=== PATIENT | female | born 1935 | race Caucasian/White ===

== ENCOUNTER 2017-06-10 11:56 | Inpatient (IN) | payer MEDICARE, BC, OTHER ==
[~2017-06-10] VITALS: Ht 160 cm; Wt 99.8 kg
[2017-06-10] MEDS ORDERED: vancomycin/NS 1 GM ADD-VANTAGE 250 ML IV ONE (14:20)
[2017-06-10] MEDS ORDERED: clindamycin-Cleocin 900mg/D5W 50 ML IV ONE (14:20)
[2017-06-10 14:54] LABS: BASOPHILS # (AUTO) 0.1 X10'3 (0-0.2); BASOPHILS % (AUTO) 0.4 % (0-1); EOSINOPHILS # (AUTO) 0.3 X10'3 (0-0.9); EOSINOPHILS % (AUTO) 2.4 % (0-6); HEMATOCRIT 39.8 % (35.0-45.0); HEMOGLOBIN 13.6 g/dl (12.0-16.0); LYMPHOCYTES # (AUTO) 2.1 X10'3 (1.1-4.8); LYMPHOCYTES % (AUTO) 17.5 % (21-51); MEAN CORPUSCULAR HGB CONC 34.2 % (33.0-36.5); MEAN CORPUSCULAR VOLUME 93.6 FL (78-98); MEAN PLATELET VOLUME 8.1 FL (7.4-10.4); MONOCYTES # (AUTO) 0.8 X10'3 (0-0.9); MONOCYTES % (AUTO) 6.6 % (2-12); NEUTROPHILS # (AUTO) 8.7 X10'3 (1.8-7.7); NEUTROPHILS % (AUTO) 73.1 % (42-75); PLATELET COUNT 338 X10'3 (140-440); RED BLOOD COUNT 4.26 X10'6 (4.20-5.60); RED CELL DISTRIBUTION WIDTH 13.3 % (11.5-14.5); WHITE BLOOD COUNT 11.9 X10'3 (4.5-11.0)
[2017-06-10] MEDS ORDERED: ASPI81TA52 PO (15:46)
[2017-06-10] MEDS ORDERED: ALBU8HFA PO (15:47)
[2017-06-10] MEDS ORDERED: SPIR50TA3 PO (15:48)
[2017-06-10] MEDS ORDERED: LEVE500T77 PO (15:49)
[2017-06-10] MEDS ORDERED: CHLO12TA2 PO (15:50)
[2017-06-10] MEDS ORDERED: PENC5CRE TOP (15:52)
[2017-06-10] MEDS ORDERED: DEXL60CA3 PO (15:52)
[2017-06-10] MEDS ORDERED: DILT240C33 PO (15:53)
[2017-06-10] MEDS ORDERED: FURO40TA4 PO (15:54)
[2017-06-10] MEDS ORDERED: CODE1CAP54 PO (15:54)
[2017-06-10] MEDS ORDERED: IRON18TA PO (15:56)
[2017-06-10] MEDS ORDERED: LOPE-155 PO (15:56)
[2017-06-10] MEDS ORDERED: MAGN400C PO (15:57)
[2017-06-10] MEDS ORDERED: MINO2.5T19 PO (15:57)
[2017-06-10] MEDS ORDERED: TAPE50TA2 PO (15:58)
[2017-06-10 16:07] LABS: ALANINE AMINOTRANSFERASE 25 U/L (12-78); ALBUMIN 3.6 G/DL (3.4-5.0); ALBUMIN/GLOBULIN RATIO 0.9 (1.1-1.5); ALKALINE PHOSPHATASE 74 IU/L (46-116); ANION GAP 5 (8-16); ASPARTATE AMINO TRANSFERASE 21 U/L (10-37); BILIRUBIN,TOTAL 0.3 MG/DL (0.1-1.0); BLOOD UREA NITROGEN 17 MG/DL (7-18); BUN/CREATININE RATIO 12.1 (6.6-38.0); CALCIUM 9.4 MG/DL (8.5-10.1); CHLORIDE 103 MMOL/L (99-107); GLUCOSE 151 MG/DL (70-104); MAGNESIUM 2.1 MG/DL (1.5-2.4); POTASSIUM 4.4 MMOL/L (3.5-5.1); SODIUM 144 MMOL/L (135-145); TOTAL CARBON DIOXIDE 36.5 MMOL/L (24-32); TOTAL PROTEIN 7.5 G/DL (6.4-8.2); eGFR 36 ML/MIN
[2017-06-10] MEDS: normal saline 1000ml 1,000 ML IV SCH (16:20)
[2017-06-10] MEDS ORDERED: mag hydrox/Alum hydrox/simeth 30ml oral suspension PO PRN (16:20)
[2017-06-10] MEDS ORDERED: acetaminophen 325mg tablet PO PRN (16:20)
[2017-06-10] MEDS ORDERED: HYDROcodone/acetaminophen 5mg/325mg tablet PO PRN (16:20)
[2017-06-10] MEDS ORDERED: naloxone 0.4 mg/ml inj IV PRN (16:20)
[2017-06-10] MEDS ORDERED: CADD PCA waste documentation MC PRN (16:20)
[2017-06-10] MEDS ORDERED: loperamide 2mg capsule PO PRN (19:15)
[2017-06-10] MEDS ORDERED: morphine/NS 5 mg/ml CADD 50 ML IV SCH (19:25)
[2017-06-10] MEDS: metroNIDAZOLE-Flagyl 500mg/NS 100 ML IV SCH (20:28)
[2017-06-10] MEDS: levetiracetam 250mg tablet PO SCH (20:28)
[2017-06-10] MEDS: furosemide 40mg tablet PO SCH (20:28)
[2017-06-10] MEDS: pantoprazole 40mg Tablet.DR PO SCH (20:29)
[2017-06-10] MEDS: minoxidil 2.5mg tablet PO SCH (20:29)
[2017-06-10] MEDS ORDERED: temazepam 15mg capsule PO PRN (21:00)
[2017-06-10] MEDS ORDERED: pantoprazole 40 MG vial IV ONE (23:25)
[2017-06-11] MEDS: normal saline 1000ml 1,000 ML IV SCH ×3 (02:35→22:20)
[2017-06-11 06:25] LABS: INR 2.2 INR; PROTHROMBIN TIME 22.2 SECONDS (9.0-12.0)
[2017-06-11 06:31] LABS: BASOPHILS % (AUTO) 0.2 % (0-1); EOSINOPHILS # (AUTO) 0.4 X10'3 (0-0.9); EOSINOPHILS % (AUTO) 4.3 % (0-6); HEMATOCRIT 33.8 % (35.0-45.0); HEMOGLOBIN 11.6 g/dl (12.0-16.0); LYMPHOCYTES # (AUTO) 1.7 X10'3 (1.1-4.8); LYMPHOCYTES % (AUTO) 20.1 % (21-51); MEAN CORPUSCULAR HEMOGLOBIN 31.3 PG (27.0-31.0); MEAN CORPUSCULAR HGB CONC 34.4 % (33.0-36.5); MEAN PLATELET VOLUME 7.7 FL (7.4-10.4); MONOCYTES # (AUTO) 0.8 X10'3 (0-0.9); MONOCYTES % (AUTO) 9.5 % (2-12); NEUTROPHILS # (AUTO) 5.6 X10'3 (1.8-7.7); NEUTROPHILS % (AUTO) 65.9 % (42-75); PLATELET COUNT 259 X10'3 (140-440); RED BLOOD COUNT 3.71 X10'6 (4.20-5.60); RED CELL DISTRIBUTION WIDTH 13.4 % (11.5-14.5); WHITE BLOOD COUNT 8.4 X10'3 (4.5-11.0)
[2017-06-11 06:34] LABS: ALBUMIN 3.1 G/DL (3.4-5.0); ANION GAP 7 (8-16); BLOOD UREA NITROGEN 13 MG/DL (7-18); BUN/CREATININE RATIO 9.7 (6.6-38.0); CALCIUM 8.4 MG/DL (8.5-10.1); CHLORIDE 106 MMOL/L (99-107); CREATININE 1.34 MG/DL (0.40-0.90); GLUCOSE 108 MG/DL (70-104); POTASSIUM 4.4 MMOL/L (3.5-5.1); SODIUM 145 MMOL/L (135-145); TOTAL CARBON DIOXIDE 31.8 MMOL/L (24-32); eGFR 38 ML/MIN
[2017-06-11] MEDS ORDERED: PENCICLOVIR TOP PRN (08:00)
[2017-06-11] MEDS: levoFLOXACIN-Levaquin 750MG/D5 150 ML IV SCH (08:15)
[2017-06-11] MEDS: spironolactone 50 MG tablet PO SCH (08:25)
[2017-06-11] MEDS: codeine/butalbital/acetaminophen/caffeine capsule PO SCH (08:25)
[2017-06-11] MEDS: levetiracetam 250mg tablet PO SCH ×2 (08:25→19:58)
[2017-06-11] MEDS: diltiazem CD 120mg capsule (once-daily) PO SCH (08:25)
[2017-06-11] MEDS: furosemide 40mg tablet PO SCH ×2 (08:26→19:57)
[2017-06-11] MEDS: ferrous sulfate 325mg tablet PO SCH (08:26)
[2017-06-11] MEDS: pantoprazole 40mg Tablet.DR PO SCH ×2 (08:26→19:57)
[2017-06-11] MEDS: minoxidil 2.5mg tablet PO SCH ×2 (08:26→19:58)
[2017-06-11] MEDS: magnesium oxide 400mg tablet PO SCH (08:26)
[2017-06-11] MEDS: acetaminophen 325mg tablet PO PRN ×2 (08:33→15:28)
[2017-06-11] MEDS: metroNIDAZOLE-Flagyl 500mg/NS 100 ML IV SCH ×2 (09:58→19:58)
[2017-06-11 16:30] VITALS: BP 147/66
[2017-06-11] MEDS: chlorpheniramine 4mg tablet PO PRN (21:42)
[2017-06-11 22:00] VITALS: BP 159/57
[2017-06-12] VITALS (16 sets, daily range): BP systolic 113–144; BP diastolic 50–86
[2017-06-12] MEDS: normal saline 1000ml 1,000 ML IV SCH ×2 (04:32→17:02)
[2017-06-12] MEDS ORDERED: mineral oil 133ml enema RC PRN (05:00)
[2017-06-12 05:54] LABS: BASOPHILS % (AUTO) 0.4 % (0-1); EOSINOPHILS # (AUTO) 0.3 X10'3 (0-0.9); EOSINOPHILS % (AUTO) 3.8 % (0-6); HEMATOCRIT 34.2 % (35.0-45.0); HEMOGLOBIN 11.7 g/dl (12.0-16.0); LYMPHOCYTES # (AUTO) 1.4 X10'3 (1.1-4.8); LYMPHOCYTES % (AUTO) 15.4 % (21-51); MEAN CORPUSCULAR HEMOGLOBIN 31.6 PG (27.0-31.0); MEAN CORPUSCULAR HGB CONC 34.1 % (33.0-36.5); MEAN CORPUSCULAR VOLUME 92.7 FL (78-98); MEAN PLATELET VOLUME 7.9 FL (7.4-10.4); MONOCYTES # (AUTO) 0.8 X10'3 (0-0.9); MONOCYTES % (AUTO) 9.6 % (2-12); NEUTROPHILS # (AUTO) 6.3 X10'3 (1.8-7.7); NEUTROPHILS % (AUTO) 70.8 % (42-75); PLATELET COUNT 262 X10'3 (140-440); RED BLOOD COUNT 3.68 X10'6 (4.20-5.60); RED CELL DISTRIBUTION WIDTH 13.6 % (11.5-14.5); WHITE BLOOD COUNT 8.8 X10'3 (4.5-11.0)
[2017-06-12 06:21] LABS: INR 1.5 INR; PROTHROMBIN TIME 15.1 SECONDS (9.0-12.0)
[2017-06-12 06:24] LABS: ALBUMIN 3.1 G/DL (3.4-5.0); ANION GAP 9 (8-16); BLOOD UREA NITROGEN 16 MG/DL (7-18); BUN/CREATININE RATIO 11.7 (6.6-38.0); CALCIUM 8.2 MG/DL (8.5-10.1); CHLORIDE 107 MMOL/L (99-107); CREATININE 1.37 MG/DL (0.40-0.90); GLUCOSE 131 MG/DL (70-104); POTASSIUM 3.9 MMOL/L (3.5-5.1); SODIUM 145 MMOL/L (135-145); TOTAL CARBON DIOXIDE 28.8 MMOL/L (24-32); eGFR 37 ML/MIN
[2017-06-12] MEDS ORDERED: LEVA15HF4 INH (07:01)
[2017-06-12] MEDS: furosemide 40mg tablet PO SCH ×2 (07:36→20:13)
[2017-06-12] MEDS: magnesium oxide 400mg tablet PO SCH (07:36)
[2017-06-12] MEDS: pantoprazole 40mg Tablet.DR PO SCH ×2 (07:36→20:13)
[2017-06-12] MEDS: spironolactone 50 MG tablet PO SCH (07:36)
[2017-06-12] MEDS: levetiracetam 250mg tablet PO SCH ×2 (07:36→20:13)
[2017-06-12] MEDS: diltiazem CD 120mg capsule (once-daily) PO SCH (07:36)
[2017-06-12] MEDS: chlorpheniramine 4mg tablet PO PRN (07:37)
[2017-06-12] MEDS: metroNIDAZOLE-Flagyl 500mg/NS 100 ML IV SCH (07:37)
[2017-06-12] MEDS: minoxidil 2.5mg tablet PO SCH ×2 (07:37→20:14)
[2017-06-12] MEDS: ferrous sulfate 325mg tablet PO SCH (07:39)
[2017-06-12] MEDS: codeine/butalbital/acetaminophen/caffeine capsule PO SCH (08:00)
[2017-06-12] MEDS: levoFLOXACIN-Levaquin 750MG/D5 150 ML IV SCH (08:54)
[2017-06-12] MEDS ORDERED: albuterol 2.5 MG/3 ML nebule NEB ONE (09:55)
[2017-06-12] MEDS ORDERED: BUPIVAcaine 0.5% inj/PF 30 ml vial ONE (09:58)
[2017-06-12] MEDS ORDERED: sevoflurane 250ml liquid IH ONE (10:19)
[2017-06-12] MEDS ORDERED: phenylephrine 10mg/ml inj IV ONE (10:19)
[2017-06-12] MEDS ORDERED: propofol inj 20 ML IV ONE (10:20)
[2017-06-12] MEDS ORDERED: fentaNYL/PF 50MCG/1 ML 2ML syringe ONE (10:20)
[2017-06-12] MEDS ORDERED: dexamethasone sod phosphate 4mg/ml inj. ONE (10:48)
[2017-06-12] MEDS ORDERED: ondansetron/PF 4mg/2ml inj ONE (10:48)
[2017-06-12] MEDS ORDERED: ringers solution, lacted 1,000 ML IV SCH (11:22)
[2017-06-12] MEDS ORDERED: meperidine/PF 50mg/ml syringe IV PRN (11:25)
[2017-06-12] MEDS ORDERED: ondansetron/PF 4mg/2ml inj IV PRN (11:25)
[2017-06-12] MEDS ORDERED: fentaNYL/PF 50MCG/1 ML 2ML syringe IV PRN (11:25)
[2017-06-12] MEDS ORDERED: proCHLORperazine 10 MG/2 ml inj IV PRN (11:25)
[2017-06-12] MEDS ORDERED: CADD PCA waste documentation MC SCH (12:45)
[2017-06-12] MEDS: morphine/NS 5 mg/ml CADD 50 ML IV SCH ×6 (13:00→23:00)
[2017-06-12] MEDS: metroNIDAZOLE 500mg tablet PO SCH (20:13)
[2017-06-12] MEDS: magnesium hydroxide 30ml (MOM) UD suspension PO PRN (20:21)
[2017-06-13] MEDS: morphine/NS 5 mg/ml CADD 50 ML IV SCH ×6 (01:00→11:00)
[2017-06-13] MEDS: normal saline 1000ml 1,000 ML IV SCH (04:25)
[2017-06-13 06:00] VITALS: BP 131/58
[2017-06-13 07:14] LABS: BASOPHILS % (AUTO) 0.1 % (0-1); EOSINOPHILS # (AUTO) 0.1 X10'3 (0-0.9); EOSINOPHILS % (AUTO) 1.3 % (0-6); HEMATOCRIT 30.9 % (35.0-45.0); HEMOGLOBIN 10.5 g/dl (12.0-16.0); LYMPHOCYTES # (AUTO) 0.8 X10'3 (1.1-4.8); LYMPHOCYTES % (AUTO) 8.1 % (21-51); MEAN CORPUSCULAR HEMOGLOBIN 31.8 PG (27.0-31.0); MEAN CORPUSCULAR HGB CONC 33.9 % (33.0-36.5); MEAN CORPUSCULAR VOLUME 93.7 FL (78-98); MEAN PLATELET VOLUME 8.4 FL (7.4-10.4); MONOCYTES # (AUTO) 0.6 X10'3 (0-0.9); MONOCYTES % (AUTO) 6.8 % (2-12); NEUTROPHILS # (AUTO) 7.8 X10'3 (1.8-7.7); NEUTROPHILS % (AUTO) 83.7 % (42-75); PLATELET COUNT 249 X10'3 (140-440); RED CELL DISTRIBUTION WIDTH 13.5 % (11.5-14.5); WHITE BLOOD COUNT 9.3 X10'3 (4.5-11.0)
[2017-06-13 07:30] LABS: INR 1.1 INR; PROTHROMBIN TIME 11.8 SECONDS (9.0-12.0)
[2017-06-13 07:31] LABS: ALBUMIN 2.9 G/DL (3.4-5.0); ANION GAP 7 (8-16); BLOOD UREA NITROGEN 20 MG/DL (7-18); BUN/CREATININE RATIO 14.9 (6.6-38.0); CALCIUM 7.6 MG/DL (8.5-10.1); CHLORIDE 108 MMOL/L (99-107); CREATININE 1.34 MG/DL (0.40-0.90); GLUCOSE 158 MG/DL (70-104); MAGNESIUM 2.3 MG/DL (1.5-2.4); POTASSIUM 4.6 MMOL/L (3.5-5.1); SODIUM 143 MMOL/L (135-145); TOTAL CARBON DIOXIDE 28.3 MMOL/L (24-32); eGFR 38 ML/MIN
[2017-06-13] MEDS: codeine/butalbital/acetaminophen/caffeine capsule PO SCH (08:00)
[2017-06-13] MEDS: diltiazem CD 120mg capsule (once-daily) PO SCH (08:02)
[2017-06-13] MEDS: furosemide 40mg tablet PO SCH ×2 (08:02→20:34)
[2017-06-13] MEDS: magnesium oxide 400mg tablet PO SCH (08:02)
[2017-06-13] MEDS: metroNIDAZOLE 500mg tablet PO SCH ×2 (08:02→20:34)
[2017-06-13] MEDS: spironolactone 50 MG tablet PO SCH (08:02)
[2017-06-13] MEDS: ferrous sulfate 325mg tablet PO SCH (08:02)
[2017-06-13] MEDS: pantoprazole 40mg Tablet.DR PO SCH ×2 (08:03→20:34)
[2017-06-13] MEDS: levetiracetam 250mg tablet PO SCH ×2 (08:03→20:34)
[2017-06-13] MEDS: minoxidil 2.5mg tablet PO SCH ×2 (08:03→20:34)
[2017-06-13 10:00] VITALS: BP 141/58
[2017-06-13] MEDS: magnesium hydroxide 30ml (MOM) UD suspension PO PRN (12:38)
[2017-06-13] MEDS: duloxetine 20mg capsule.DR PO SCH ×2 (13:40→15:20)
[2017-06-13] MEDS ORDERED: morphine 4 MG/ML inj SYRINge IV PRN (13:40)
[2017-06-13] MEDS: morphine 4 MG/ML inj SYRINge IV PRN (15:38)
[2017-06-13 18:00] VITALS: BP 149/59
[2017-06-13] MEDS: lactobacillus rhamnosus 10,000 MMU CELLS/CAPSULE PO SCH (20:34)
[2017-06-13] MEDS: acetaminophen 325mg tablet PO PRN (20:35)
[2017-06-13] MEDS: albuterol 2.5 MG/3 ML nebule NEB PRN (20:49)
[2017-06-13 22:00] VITALS: BP 152/69
[2017-06-14] MEDS: acetaminophen 325mg tablet PO PRN ×3 (03:10→22:55)
[2017-06-14] MEDS ORDERED: diphenhydrAMINE 25mg capsule PO PRN (03:30)
[2017-06-14] MEDS: morphine 4 MG/ML inj SYRINge IV PRN ×2 (04:56→09:40)
[2017-06-14 05:48] LABS: BASOPHILS % (AUTO) 0.3 % (0-1); EOSINOPHILS # (AUTO) 0.2 X10'3 (0-0.9); EOSINOPHILS % (AUTO) 1.8 % (0-6); HEMATOCRIT 32.8 % (35.0-45.0); HEMOGLOBIN 11.1 g/dl (12.0-16.0); LYMPHOCYTES # (AUTO) 1.9 X10'3 (1.1-4.8); MEAN CORPUSCULAR HEMOGLOBIN 31.6 PG (27.0-31.0); MEAN CORPUSCULAR VOLUME 92.9 FL (78-98); MEAN PLATELET VOLUME 8.2 FL (7.4-10.4); MONOCYTES # (AUTO) 0.7 X10'3 (0-0.9); MONOCYTES % (AUTO) 6.9 % (2-12); NEUTROPHILS # (AUTO) 7.5 X10'3 (1.8-7.7); PLATELET COUNT 292 X10'3 (140-440); RED BLOOD COUNT 3.53 X10'6 (4.20-5.60); RED CELL DISTRIBUTION WIDTH 13.8 % (11.5-14.5); WHITE BLOOD COUNT 10.3 X10'3 (4.5-11.0)
[2017-06-14 06:00] VITALS: BP 134/56
[2017-06-14 06:02] LABS: PROTHROMBIN TIME 10.7 SECONDS (9.0-12.0)
[2017-06-14 06:04] LABS: ALBUMIN 3.3 G/DL (3.4-5.0); ANION GAP 9 (8-16); BLOOD UREA NITROGEN 26 MG/DL (7-18); BUN/CREATININE RATIO 19.8 (6.6-38.0); CALCIUM 8.3 MG/DL (8.5-10.1); CHLORIDE 108 MMOL/L (99-107); CREATININE 1.31 MG/DL (0.40-0.90); GLUCOSE 126 MG/DL (70-104); MAGNESIUM 2.8 MG/DL (1.5-2.4); POTASSIUM 4.5 MMOL/L (3.5-5.1); SODIUM 144 MMOL/L (135-145); TOTAL CARBON DIOXIDE 27.1 MMOL/L (24-32); eGFR 39 ML/MIN
[2017-06-14] MEDS: duloxetine 20mg capsule.DR PO SCH ×2 (08:00→08:18)
[2017-06-14] MEDS: codeine/butalbital/acetaminophen/caffeine capsule PO SCH (08:17)
[2017-06-14] MEDS: metroNIDAZOLE 500mg tablet PO SCH ×2 (08:17→21:10)
[2017-06-14] MEDS: levetiracetam 250mg tablet PO SCH ×2 (08:17→21:10)
[2017-06-14] MEDS: minoxidil 2.5mg tablet PO SCH ×2 (08:18→21:11)
[2017-06-14] MEDS: furosemide 40mg tablet PO SCH ×2 (08:18→21:10)
[2017-06-14] MEDS: diltiazem CD 120mg capsule (once-daily) PO SCH (08:18)
[2017-06-14] MEDS: ferrous sulfate 325mg tablet PO SCH (08:18)
[2017-06-14] MEDS: spironolactone 50 MG tablet PO SCH (08:18)
[2017-06-14] MEDS: magnesium oxide 400mg tablet PO SCH (08:18)
[2017-06-14] MEDS: lactobacillus rhamnosus 10,000 MMU CELLS/CAPSULE PO SCH ×2 (08:18→21:10)
[2017-06-14] MEDS: pantoprazole 40mg Tablet.DR PO SCH ×2 (08:18→21:11)
[2017-06-14] MEDS: levoFLOXACIN 750MG TABLET PO SCH (11:09)
[2017-06-14 12:50] VITALS: BP 119/49
[2017-06-14 18:00] VITALS: BP 149/56
[2017-06-14 22:00] VITALS: BP 132/46
[2017-06-15] VITALS (15 sets, daily range): BP systolic 132–177; BP diastolic 48–87
[2017-06-15] MEDS: albuterol 2.5 MG/3 ML nebule NEB PRN (05:17)
[2017-06-15 05:51] LABS: BASOPHILS % (AUTO) 0.5 % (0-1); EOSINOPHILS # (AUTO) 0.3 X10'3 (0-0.9); EOSINOPHILS % (AUTO) 3.1 % (0-6); HEMATOCRIT 36.2 % (35.0-45.0); HEMOGLOBIN 12.4 g/dl (12.0-16.0); LYMPHOCYTES # (AUTO) 1.7 X10'3 (1.1-4.8); LYMPHOCYTES % (AUTO) 16.4 % (21-51); MEAN CORPUSCULAR HEMOGLOBIN 31.8 PG (27.0-31.0); MEAN CORPUSCULAR HGB CONC 34.1 % (33.0-36.5); MEAN CORPUSCULAR VOLUME 93.4 FL (78-98); MEAN PLATELET VOLUME 8.3 FL (7.4-10.4); MONOCYTES # (AUTO) 0.8 X10'3 (0-0.9); MONOCYTES % (AUTO) 7.8 % (2-12); NEUTROPHILS # (AUTO) 7.5 X10'3 (1.8-7.7); NEUTROPHILS % (AUTO) 72.2 % (42-75); PLATELET COUNT 308 X10'3 (140-440); RED BLOOD COUNT 3.88 X10'6 (4.20-5.60); RED CELL DISTRIBUTION WIDTH 13.8 % (11.5-14.5); WHITE BLOOD COUNT 10.4 X10'3 (4.5-11.0)
[2017-06-15 06:00] LABS: PROTHROMBIN TIME 10.5 SECONDS (9.0-12.0)
[2017-06-15 06:39] LABS: ALBUMIN 3.5 G/DL (3.4-5.0); ANION GAP 11 (8-16); BLOOD UREA NITROGEN 15 MG/DL (7-18); BUN/CREATININE RATIO 12.9 (6.6-38.0); CALCIUM 8.1 MG/DL (8.5-10.1); CHLORIDE 105 MMOL/L (99-107); CREATININE 1.16 MG/DL (0.40-0.90); GLUCOSE 110 MG/DL (70-104); MAGNESIUM 2.6 MG/DL (1.5-2.4); POTASSIUM 4.5 MMOL/L (3.5-5.1); SODIUM 141 MMOL/L (135-145); eGFR 45 ML/MIN
[2017-06-15] MEDS: lactobacillus rhamnosus 10,000 MMU CELLS/CAPSULE PO SCH ×2 (08:00→19:59)
[2017-06-15] MEDS: duloxetine 20mg capsule.DR PO SCH ×2 (08:00→08:22)
[2017-06-15] MEDS: magnesium oxide 400mg tablet PO SCH (08:00)
[2017-06-15] MEDS: codeine/butalbital/acetaminophen/caffeine capsule PO SCH (08:00)
[2017-06-15] MEDS: furosemide 40mg tablet PO SCH ×2 (08:00→20:01)
[2017-06-15] MEDS: spironolactone 50 MG tablet PO SCH (08:20)
[2017-06-15] MEDS: diltiazem CD 120mg capsule (once-daily) PO SCH (08:21)
[2017-06-15] MEDS: ferrous sulfate 325mg tablet PO SCH (08:23)
[2017-06-15] MEDS: acetaminophen 325mg tablet PO PRN (08:24)
[2017-06-15] MEDS: metroNIDAZOLE 500mg tablet PO SCH ×2 (08:25→20:02)
[2017-06-15] MEDS: levetiracetam 250mg tablet PO SCH ×2 (08:26→20:00)
[2017-06-15] MEDS: pantoprazole 40mg Tablet.DR PO SCH ×2 (08:27→20:02)
[2017-06-15] MEDS: minoxidil 2.5mg tablet PO SCH ×2 (08:27→20:02)
[2017-06-15] MEDS ORDERED: glycopyrrolate 0.2mg/ml inj ONE (12:11)
[2017-06-15] MEDS ORDERED: succinylcholine 20mg/ml inj IV ONE (12:11)
[2017-06-15] MEDS ORDERED: sevoflurane 250ml liquid IH ONE (12:11)
[2017-06-15] MEDS ORDERED: neostigmine methylsulfate 1 MG/ML 10ml vial ONE (12:11)
[2017-06-15] MEDS ORDERED: ondansetron/PF 4mg/2ml inj IV PRN (13:25)
[2017-06-15] MEDS ORDERED: ringers solution, lacted 1,000 ML IV SCH (13:25)
[2017-06-15] MEDS ORDERED: ipratropium/albuterol 3ml nebule NEB PRN (13:25)
[2017-06-15] MEDS: morphine 4 MG/ML inj SYRINge IV PRN ×3 (13:39→19:58)
[2017-06-16] MEDS: morphine 4 MG/ML inj SYRINge IV PRN ×4 (00:24→20:36)
[2017-06-16 00:38] VITALS: BP 128/58
[2017-06-16] MEDS: codeine/butalbital/acetaminophen/caffeine capsule PO SCH (08:00)
[2017-06-16] MEDS: duloxetine 20mg capsule.DR PO SCH ×2 (08:00→08:15)
[2017-06-16] MEDS: spironolactone 50 MG tablet PO SCH (08:00)
[2017-06-16] MEDS: magnesium oxide 400mg tablet PO SCH (08:00)
[2017-06-16] MEDS: diltiazem CD 120mg capsule (once-daily) PO SCH (08:14)
[2017-06-16] MEDS: lactobacillus rhamnosus 10,000 MMU CELLS/CAPSULE PO SCH ×2 (08:15→20:37)
[2017-06-16] MEDS: ferrous sulfate 325mg tablet PO SCH (08:16)
[2017-06-16] MEDS: metroNIDAZOLE 500mg tablet PO SCH ×2 (08:17→20:37)
[2017-06-16] MEDS: furosemide 40mg tablet PO SCH ×2 (08:18→20:37)
[2017-06-16] MEDS: levetiracetam 250mg tablet PO SCH ×2 (08:18→20:37)
[2017-06-16] MEDS: minoxidil 2.5mg tablet PO SCH ×2 (08:19→20:39)
[2017-06-16] MEDS: pantoprazole 40mg Tablet.DR PO SCH ×2 (08:20→20:37)
[2017-06-16] MEDS: acetaminophen 325mg tablet PO PRN (08:34)
[2017-06-16] MEDS: albuterol 2.5 MG/3 ML nebule NEB PRN (09:04)
[2017-06-16 11:44] VITALS: BP 163/57
[2017-06-16] MEDS: levoFLOXACIN 750MG TABLET PO SCH (11:50)
[2017-06-16 12:55] LABS: BASOPHILS % (AUTO) 0.4 % (0-1); EOSINOPHILS # (AUTO) 0.1 X10'3 (0-0.9); EOSINOPHILS % (AUTO) 0.9 % (0-6); HEMATOCRIT 34.1 % (35.0-45.0); HEMOGLOBIN 11.5 g/dl (12.0-16.0); LYMPHOCYTES # (AUTO) 1.4 X10'3 (1.1-4.8); LYMPHOCYTES % (AUTO) 11.3 % (21-51); MEAN CORPUSCULAR HEMOGLOBIN 31.7 PG (27.0-31.0); MEAN CORPUSCULAR HGB CONC 33.7 % (33.0-36.5); MEAN CORPUSCULAR VOLUME 94.1 FL (78-98); MEAN PLATELET VOLUME 8.1 FL (7.4-10.4); MONOCYTES # (AUTO) 1.2 X10'3 (0-0.9); MONOCYTES % (AUTO) 9.6 % (2-12); NEUTROPHILS # (AUTO) 9.6 X10'3 (1.8-7.7); NEUTROPHILS % (AUTO) 77.8 % (42-75); PLATELET COUNT 288 X10'3 (140-440); RED BLOOD COUNT 3.63 X10'6 (4.20-5.60); WHITE BLOOD COUNT 12.4 X10'3 (4.5-11.0)
[2017-06-16 13:10] LABS: ALBUMIN/GLOBULIN RATIO 0.9 (1.1-1.5); ALKALINE PHOSPHATASE 75 IU/L (46-116); ANION GAP 8 (8-16); ASPARTATE AMINO TRANSFERASE 45 U/L (10-37); BILIRUBIN,TOTAL 0.4 MG/DL (0.1-1.0); BLOOD UREA NITROGEN 12 MG/DL (7-18); BUN/CREATININE RATIO 10.3 (6.6-38.0); CALCIUM 8.1 MG/DL (8.5-10.1); CHLORIDE 105 MMOL/L (99-107); CREATININE 1.17 MG/DL (0.40-0.90); GLUCOSE 101 MG/DL (70-104); POTASSIUM 4.4 MMOL/L (3.5-5.1); SODIUM 141 MMOL/L (135-145); TOTAL PROTEIN 6.5 G/DL (6.4-8.2); eGFR 45 ML/MIN
[2017-06-16 13:41] LABS: ALANINE AMINOTRANSFERASE 54 U/L (12-78)
[2017-06-16] MEDS ORDERED: HYDROmorphone 1 mg/ml syringe IV PRN (19:50)
[2017-06-16 20:00] VITALS: BP 145/49
[2017-06-16] MEDS ORDERED: HYDROmorphone 2mg tablet PO PRN ×2 (20:05→20:15)
[2017-06-16] MEDS ORDERED: HYDROmorphone 2mg tablet PO ONE (20:05)
[2017-06-17] VITALS: BP 126/47
[2017-06-17] MEDS: albuterol 2.5 MG/3 ML nebule NEB PRN (01:18)
[2017-06-17] MEDS: HYDROmorphone 2mg tablet PO PRN ×3 (01:47→23:39)
[2017-06-17 07:19] VITALS: BP 120/52
[2017-06-17] MEDS: duloxetine 20mg capsule.DR PO SCH ×2 (07:37→07:52)
[2017-06-17] MEDS: magnesium oxide 400mg tablet PO SCH (07:39)
[2017-06-17] MEDS: codeine/butalbital/acetaminophen/caffeine capsule PO SCH (07:40)
[2017-06-17] MEDS: minoxidil 2.5mg tablet PO SCH ×2 (07:52→20:46)
[2017-06-17] MEDS: levetiracetam 250mg tablet PO SCH ×2 (07:52→20:47)
[2017-06-17] MEDS: pantoprazole 40mg Tablet.DR PO SCH ×2 (07:52→20:47)
[2017-06-17] MEDS: ferrous sulfate 325mg tablet PO SCH (07:52)
[2017-06-17] MEDS: spironolactone 50 MG tablet PO SCH (07:52)
[2017-06-17] MEDS: lactobacillus rhamnosus 10,000 MMU CELLS/CAPSULE PO SCH ×2 (07:52→20:47)
[2017-06-17] MEDS: metroNIDAZOLE 500mg tablet PO SCH (07:52)
[2017-06-17] MEDS: diltiazem CD 120mg capsule (once-daily) PO SCH (07:52)
[2017-06-17] MEDS: morphine 4 MG/ML inj SYRINge IV PRN ×3 (07:53→21:49)
[2017-06-17] MEDS: furosemide 40mg tablet PO SCH ×2 (07:54→20:47)
[2017-06-17] MEDS: ondansetron/PF 4mg/2ml inj IV PRN (08:06)
[2017-06-17 10:41] LABS: BASOPHILS # (AUTO) 0.1 X10'3 (0-0.2); BASOPHILS % (AUTO) 0.7 % (0-1); EOSINOPHILS # (AUTO) 0.1 X10'3 (0-0.9); EOSINOPHILS % (AUTO) 1.2 % (0-6); HEMATOCRIT 33.8 % (35.0-45.0); HEMOGLOBIN 11.6 g/dl (12.0-16.0); LYMPHOCYTES # (AUTO) 1.5 X10'3 (1.1-4.8); LYMPHOCYTES % (AUTO) 12.1 % (21-51); MEAN CORPUSCULAR HEMOGLOBIN 31.8 PG (27.0-31.0); MEAN CORPUSCULAR HGB CONC 34.3 % (33.0-36.5); MEAN CORPUSCULAR VOLUME 92.7 FL (78-98); MEAN PLATELET VOLUME 7.8 FL (7.4-10.4); MONOCYTES % (AUTO) 8.3 % (2-12); NEUTROPHILS # (AUTO) 9.5 X10'3 (1.8-7.7); NEUTROPHILS % (AUTO) 77.7 % (42-75); PLATELET COUNT 253 X10'3 (140-440); RED BLOOD COUNT 3.65 X10'6 (4.20-5.60); RED CELL DISTRIBUTION WIDTH 13.5 % (11.5-14.5); WHITE BLOOD COUNT 12.2 X10'3 (4.5-11.0)
[2017-06-17 10:51] LABS: ALBUMIN 2.6 G/DL (3.4-5.0); ANION GAP 7 (8-16); BLOOD UREA NITROGEN 13 MG/DL (7-18); BUN/CREATININE RATIO 11.1 (6.6-38.0); CALCIUM 7.8 MG/DL (8.5-10.1); CHLORIDE 102 MMOL/L (99-107); CREATININE 1.17 MG/DL (0.40-0.90); GLUCOSE 148 MG/DL (70-104); SODIUM 136 MMOL/L (135-145); TOTAL CARBON DIOXIDE 26.9 MMOL/L (24-32); eGFR 45 ML/MIN
[2017-06-17 10:53] LABS: POTASSIUM 4.6 MMOL/L (3.5-5.1)
[2017-06-17 11:41] VITALS: BP_SYST 100; BP_SYST 123; BP_DIAS 45; BP_DIAS 62
[2017-06-17 20:00] VITALS: BP 134/51
[2017-06-18] VITALS: BP 134/49
[2017-06-18] MEDS: HYDROmorphone 2mg tablet PO PRN (05:08)
[2017-06-18] MEDS: chlorpheniramine 4mg tablet PO PRN (05:09)
[2017-06-18 08:00] VITALS: BP 121/42
[2017-06-18] MEDS: magnesium oxide 400mg tablet PO SCH (08:00)
[2017-06-18] MEDS: duloxetine 20mg capsule.DR PO SCH ×2 (08:00→09:07)
[2017-06-18] MEDS: codeine/butalbital/acetaminophen/caffeine capsule PO SCH (08:00)
[2017-06-18] MEDS: ferrous sulfate 325mg tablet PO SCH (09:07)
[2017-06-18] MEDS: furosemide 40mg tablet PO SCH ×2 (09:07→21:27)
[2017-06-18] MEDS: diltiazem CD 120mg capsule (once-daily) PO SCH (09:07)
[2017-06-18] MEDS: lactobacillus rhamnosus 10,000 MMU CELLS/CAPSULE PO SCH ×2 (09:07→20:00)
[2017-06-18] MEDS: pantoprazole 40mg Tablet.DR PO SCH ×2 (09:08→21:28)
[2017-06-18] MEDS: levetiracetam 250mg tablet PO SCH ×2 (09:10→21:28)
[2017-06-18] MEDS: spironolactone 50 MG tablet PO SCH (09:11)
[2017-06-18] MEDS: minoxidil 2.5mg tablet PO SCH ×2 (09:12→21:27)
[2017-06-18 10:01] LABS: BASOPHILS # (AUTO) 0.1 X10'3 (0-0.2); BASOPHILS % (AUTO) 0.6 % (0-1); EOSINOPHILS # (AUTO) 0.4 X10'3 (0-0.9); EOSINOPHILS % (AUTO) 3.1 % (0-6); HEMATOCRIT 33.8 % (35.0-45.0); HEMOGLOBIN 11.5 g/dl (12.0-16.0); LYMPHOCYTES # (AUTO) 1.7 X10'3 (1.1-4.8); LYMPHOCYTES % (AUTO) 14.5 % (21-51); MEAN CORPUSCULAR HEMOGLOBIN 31.9 PG (27.0-31.0); MEAN CORPUSCULAR VOLUME 93.8 FL (78-98); MEAN PLATELET VOLUME 7.9 FL (7.4-10.4); MONOCYTES % (AUTO) 8.5 % (2-12); NEUTROPHILS # (AUTO) 8.6 X10'3 (1.8-7.7); NEUTROPHILS % (AUTO) 73.3 % (42-75); PLATELET COUNT 279 X10'3 (140-440); RED CELL DISTRIBUTION WIDTH 13.1 % (11.5-14.5); WHITE BLOOD COUNT 11.8 X10'3 (4.5-11.0)
[2017-06-18 10:18] LABS: ALANINE AMINOTRANSFERASE 28 U/L (12-78); ALBUMIN 2.5 G/DL (3.4-5.0); ALBUMIN/GLOBULIN RATIO 0.7 (1.1-1.5); ALKALINE PHOSPHATASE 60 IU/L (46-116); ANION GAP 8 (8-16); ASPARTATE AMINO TRANSFERASE 37 U/L (10-37); BILIRUBIN,TOTAL 0.5 MG/DL (0.1-1.0); BLOOD UREA NITROGEN 13 MG/DL (7-18); BUN/CREATININE RATIO 10.7 (6.6-38.0); CALCIUM 7.6 MG/DL (8.5-10.1); CHLORIDE 101 MMOL/L (99-107); CREATININE 1.22 MG/DL (0.40-0.90); GLUCOSE 168 MG/DL (70-104); POTASSIUM 4.1 MMOL/L (3.5-5.1); SODIUM 138 MMOL/L (135-145); TOTAL CARBON DIOXIDE 28.7 MMOL/L (24-32); TOTAL PROTEIN 6.3 G/DL (6.4-8.2); eGFR 43 ML/MIN
[2017-06-18] MEDS: morphine 4 MG/ML inj SYRINge IV PRN ×3 (11:55→22:40)
[2017-06-18 12:38] VITALS: BP 131/40
[2017-06-18 18:00] VITALS: BP 123/48
[2017-06-18] MEDS ORDERED: warfarin 5mg tablet PO ONE (21:00)
[2017-06-18] MEDS: metroNIDAZOLE 500mg tablet PO SCH (21:27)
[2017-06-19] VITALS: BP 122/51
[2017-06-19] MEDS: morphine 4 MG/ML inj SYRINge IV PRN (03:12)
[2017-06-19 05:41] LABS: INR 0.9 INR; PROTHROMBIN TIME 9.8 SECONDS (9.0-12.0)
[2017-06-19 08:00] VITALS: BP 116/60
[2017-06-19] MEDS: codeine/butalbital/acetaminophen/caffeine capsule PO SCH (08:00)
[2017-06-19] MEDS: magnesium oxide 400mg tablet PO SCH (08:00)
[2017-06-19] MEDS: spironolactone 50 MG tablet PO SCH (09:46)
[2017-06-19] MEDS: diltiazem CD 120mg capsule (once-daily) PO SCH (09:47)
[2017-06-19] MEDS: lactobacillus rhamnosus 10,000 MMU CELLS/CAPSULE PO SCH ×2 (09:47→21:45)
[2017-06-19] MEDS: duloxetine 20mg capsule.DR PO SCH (09:47)
[2017-06-19] MEDS: metroNIDAZOLE 500mg tablet PO SCH ×2 (09:48→21:46)
[2017-06-19] MEDS: ferrous sulfate 325mg tablet PO SCH (09:48)
[2017-06-19] MEDS: furosemide 40mg tablet PO SCH ×2 (09:49→21:46)
[2017-06-19] MEDS: levetiracetam 250mg tablet PO SCH ×2 (09:49→21:46)
[2017-06-19] MEDS: minoxidil 2.5mg tablet PO SCH ×2 (09:50→21:47)
[2017-06-19] MEDS: pantoprazole 40mg Tablet.DR PO SCH ×2 (09:52→21:50)
[2017-06-19 11:34] VITALS: BP 142/62
[2017-06-19] MEDS: acetaminophen 325mg tablet PO PRN ×2 (13:02→23:53)
[2017-06-19] MEDS ORDERED: warfarin 7.5mg tablet PO ONE (21:00)
[2017-06-19] MEDS ORDERED: warfarin 5mg tablet PO SCH (21:00)
[2017-06-20 00:05] VITALS: BP 105/54
[2017-06-20 05:43] LABS: PROTHROMBIN TIME 10.3 SECONDS (9.0-12.0)
[2017-06-20 07:00] VITALS: BP 153/60
[2017-06-20] MEDS: magnesium oxide 400mg tablet PO SCH (08:00)
[2017-06-20] MEDS: codeine/butalbital/acetaminophen/caffeine capsule PO SCH (08:00)
[2017-06-20] MEDS: diltiazem CD 120mg capsule (once-daily) PO SCH (08:15)
[2017-06-20] MEDS: levetiracetam 250mg tablet PO SCH ×2 (08:16→20:27)
[2017-06-20] MEDS: lactobacillus rhamnosus 10,000 MMU CELLS/CAPSULE PO SCH ×2 (08:16→20:29)
[2017-06-20] MEDS: morphine 4 MG/ML inj SYRINge IV PRN (08:21)
[2017-06-20] MEDS: duloxetine 20mg capsule.DR PO SCH (08:26)
[2017-06-20] MEDS: ferrous sulfate 325mg tablet PO SCH (08:26)
[2017-06-20] MEDS: furosemide 40mg tablet PO SCH ×2 (08:26→20:29)
[2017-06-20] MEDS: metroNIDAZOLE 500mg tablet PO SCH ×2 (08:27→20:29)
[2017-06-20] MEDS: ondansetron/PF 4mg/2ml inj IV PRN (08:28)
[2017-06-20] MEDS: spironolactone 50 MG tablet PO SCH (08:31)
[2017-06-20] MEDS: pantoprazole 40mg Tablet.DR PO SCH ×2 (08:31→20:29)
[2017-06-20] MEDS: minoxidil 2.5mg tablet PO SCH ×2 (08:32→20:26)
[2017-06-20] MEDS ORDERED: HYDROcodone/acetaminophen 5mg/325mg tablet PO PRN (11:45)
[2017-06-20 12:04] LABS: BASOPHILS % (AUTO) 0.4 % (0-1); EOSINOPHILS # (AUTO) 0.5 X10'3 (0-0.9); EOSINOPHILS % (AUTO) 5.3 % (0-6); HEMATOCRIT 34.6 % (35.0-45.0); HEMOGLOBIN 11.9 g/dl (12.0-16.0); LYMPHOCYTES # (AUTO) 1.5 X10'3 (1.1-4.8); LYMPHOCYTES % (AUTO) 17.8 % (21-51); MEAN CORPUSCULAR HEMOGLOBIN 31.6 PG (27.0-31.0); MEAN CORPUSCULAR HGB CONC 34.4 % (33.0-36.5); MEAN CORPUSCULAR VOLUME 91.8 FL (78-98); MEAN PLATELET VOLUME 7.7 FL (7.4-10.4); MONOCYTES # (AUTO) 0.7 X10'3 (0-0.9); MONOCYTES % (AUTO) 8.7 % (2-12); NEUTROPHILS # (AUTO) 5.8 X10'3 (1.8-7.7); NEUTROPHILS % (AUTO) 67.8 % (42-75); PLATELET COUNT 277 X10'3 (140-440); RED BLOOD COUNT 3.77 X10'6 (4.20-5.60); RED CELL DISTRIBUTION WIDTH 13.2 % (11.5-14.5); WHITE BLOOD COUNT 8.6 X10'3 (4.5-11.0)
[2017-06-20 12:13] LABS: ALBUMIN 2.6 G/DL (3.4-5.0); ANION GAP 7 (8-16); BLOOD UREA NITROGEN 13 MG/DL (7-18); BUN/CREATININE RATIO 10.4 (6.6-38.0); CALCIUM 8.4 MG/DL (8.5-10.1); CHLORIDE 100 MMOL/L (99-107); CREATININE 1.25 MG/DL (0.40-0.90); GLUCOSE 144 MG/DL (70-104); POTASSIUM 3.9 MMOL/L (3.5-5.1); SODIUM 139 MMOL/L (135-145); eGFR 41 ML/MIN
[2017-06-20] MEDS: acetaminophen 325mg tablet PO PRN (17:04)
[2017-06-20 18:00] VITALS: BP 171/54
[2017-06-20] MEDS ORDERED: warfarin 2.5mg tablet PO ONE (21:00)
[2017-06-20] MEDS: MORPHINE 2MG in 2ml NS syringe IV PRN (22:18)
[2017-06-21] VITALS: BP 122/50
[2017-06-21 07:12] VITALS: BP 141/58
[2017-06-21 07:24] LABS: INR 1.1 INR; PROTHROMBIN TIME 11.8 SECONDS (9.0-12.0)
[2017-06-21] MEDS: spironolactone 50 MG tablet PO SCH (07:47)
[2017-06-21] MEDS: lactobacillus rhamnosus 10,000 MMU CELLS/CAPSULE PO SCH ×2 (07:48→20:43)
[2017-06-21] MEDS: duloxetine 20mg capsule.DR PO SCH (07:48)
[2017-06-21] MEDS: ferrous sulfate 325mg tablet PO SCH (07:48)
[2017-06-21] MEDS: diltiazem CD 120mg capsule (once-daily) PO SCH (07:48)
[2017-06-21] MEDS: metroNIDAZOLE 500mg tablet PO SCH ×2 (07:49→20:43)
[2017-06-21] MEDS: furosemide 40mg tablet PO SCH ×2 (07:49→20:43)
[2017-06-21] MEDS: levetiracetam 250mg tablet PO SCH ×2 (07:49→20:43)
[2017-06-21] MEDS: magnesium oxide 400mg tablet PO SCH (07:50)
[2017-06-21] MEDS: minoxidil 2.5mg tablet PO SCH ×2 (07:50→20:43)
[2017-06-21] MEDS: codeine/butalbital/acetaminophen/caffeine capsule PO SCH (07:51)
[2017-06-21] MEDS: pantoprazole 40mg Tablet.DR PO SCH ×2 (07:51→20:43)
[2017-06-21 11:45] VITALS: BP 141/88
[2017-06-21 20:00] VITALS: BP 139/53
[2017-06-21] MEDS ORDERED: warfarin 7.5mg tablet PO ONE (21:00)
[2017-06-21] MEDS: MORPHINE 2MG in 2ml NS syringe IV PRN (21:06)
[2017-06-22] VITALS: BP 122/53
[2017-06-22] MEDS: acetaminophen 325mg tablet PO PRN (02:32)
[2017-06-22 05:50] LABS: INR 1.3 INR; PROTHROMBIN TIME 13.2 SECONDS (9.0-12.0)
[2017-06-22 07:00] VITALS: BP 130/54
[2017-06-22] MEDS: codeine/butalbital/acetaminophen/caffeine capsule PO SCH (08:00)
[2017-06-22] MEDS: magnesium oxide 400mg tablet PO SCH (08:00)
[2017-06-22] MEDS: levetiracetam 250mg tablet PO SCH (09:14)
[2017-06-22] MEDS: minoxidil 2.5mg tablet PO SCH (09:14)
[2017-06-22] MEDS: diltiazem CD 120mg capsule (once-daily) PO SCH (09:15)
[2017-06-22] MEDS: ferrous sulfate 325mg tablet PO SCH (09:15)
[2017-06-22] MEDS: pantoprazole 40mg Tablet.DR PO SCH (09:15)
[2017-06-22] MEDS: duloxetine 20mg capsule.DR PO SCH (09:15)
[2017-06-22] MEDS: lactobacillus rhamnosus 10,000 MMU CELLS/CAPSULE PO SCH (09:16)
[2017-06-22] MEDS: metroNIDAZOLE 500mg tablet PO SCH (09:16)
[2017-06-22] MEDS: spironolactone 50 MG tablet PO SCH (09:16)
[2017-06-22] MEDS: furosemide 40mg tablet PO SCH (09:18)
[2017-06-22] MEDS ORDERED: METR500T4 PO (10:58)
[2017-06-22] MEDS ORDERED: warfarin 7.5mg tablet PO ONE (11:25)
[2017-06-22 12:04] VITALS: BP 131/44
[2017-06-22] MEDS ORDERED: WARF5TAB PO (13:17)
[2017-06-22] MEDS ORDERED: COU4T PO (13:17)
== END 2017-06-22 13:27 | disposition home health service (06) | DRG 330 ==
LOC: ER 11:56 → ED HOLD 19:04 → EDBEDREQ 06-11 15:38 → ORTHO 4S 06-11 16:22 → PACU 06-15 13:35 → ORTHO 4S 06-15 14:16 → SUR 3N 06-16 11:20
PROVIDERS: ADMIT Family Medicine; ATTEND Internal Medicine
PROC: 0DB Gastrointestinal System, Excision (ICD-10-PCS; principal; 2017-06-12 10:19)
PROC: 0D1L0Z4 Bypass Transverse Colon to Cutaneous, Open Approach (ICD-10-PCS; 2017-06-15)
DX: C21.1 Malignant neoplasm of anal canal (principal); N17.9 Acute kidney failure, unspecified; D68.62 Lupus anticoagulant syndrome; J44.9 Chronic obstructive pulmonary disease, unspecified; C20 Malignant neoplasm of rectum; N18.3 Chronic kidney disease, stage 3 (moderate); G89.4 Chronic pain syndrome; K57.30 Diverticulosis of large intestine without perforation or abscess without bleeding; E66.9 Obesity, unspecified; I12.9 Hypertensive chronic kidney disease with stage 1 through stage 4 chronic kidney disease, or unspecified chronic kidney disease; K64.4 Residual hemorrhoidal skin tags; M79.7 Fibromyalgia; K64.9 Unspecified hemorrhoids; Z90.710 Acquired absence of both cervix and uterus; Z88.1 Allergy status to other antibiotic agents; Z91.030 Bee allergy status; Z91.018 Allergy to other foods; Z88.8 Allergy status to other drugs, medicaments and biological substances; Z88.2 Allergy status to sulfonamides; Z88.6 Allergy status to analgesic agent; Z79.01 Long term (current) use of anticoagulants; Z79.82 Long term (current) use of aspirin; Z79.899 Other long term (current) drug therapy; Z86.711 Personal history of pulmonary embolism; Z68.39 Body mass index [BMI] 39.0-39.9, adult
CPT/HCPCS: 36415; 71045; 74018; 74021; 74176; 80048; 80053; 82948; 83605; 83735; 84145; 85025; 85610; 87040; 87070; 87077; 87186; 93005; 94640; 94760; A4315; A4371; A4421; A6213; A6222; A6223; A6224; A6251; A6253; A6257; A6258; A6449; A7000; C9113; J0330; J1100; J1956; J2175; J2270; J2274; J2370; J2405; J2704; J2710; J3010; J3370; J3490; J7030; J7120; Q0163

== ENCOUNTER 2017-07-28 05:37 | Day surgery (SDC) | payer BC, MEDICARE, OTHER ==
[2017-07-27 13:32] LABS: BASOPHILS % (AUTO) 0.5 % (0-1); EOSINOPHILS # (AUTO) 0.7 X10'3 (0-0.9); EOSINOPHILS % (AUTO) 7.2 % (0-6); LYMPHOCYTES # (AUTO) 2.3 X10'3 (1.1-4.8); LYMPHOCYTES % (AUTO) 25.3 % (21-51); MEAN CORPUSCULAR HEMOGLOBIN 31.2 PG (27.0-31.0); MEAN CORPUSCULAR HGB CONC 33.7 % (33.0-36.5); MEAN CORPUSCULAR VOLUME 92.5 FL (78-98); MEAN PLATELET VOLUME 7.8 FL (7.4-10.4); MONOCYTES # (AUTO) 0.8 X10'3 (0-0.9); MONOCYTES % (AUTO) 9.2 % (2-12); NEUTROPHILS # (AUTO) 5.3 X10'3 (1.8-7.7); NEUTROPHILS % (AUTO) 57.8 % (42-75); PRE OP HEMATOCRIT 39.1 % (35.0-45.0); PRE OP HEMOGLOBIN 13.2 g/dL (12.0-16.0); PRE OP PLATELET COUNT 349 X10'3 (140-440); RED BLOOD COUNT 4.22 X10'6 (4.20-5.60); RED CELL DISTRIBUTION WIDTH 13.9 % (11.5-14.5)
[2017-07-27 13:39] LABS: CLARITY,URINE CLOUDY (Clear); COLOR,URINE YELLOW (Yellow); GLUCOSE, URINE NEGATIVE (Neg); KETONES,URINE NEGATIVE (Neg); LEUKOCYTE ESTERASE ,URINE NEGATIVE (Neg); NITRITES, URINE NEGATIVE (Neg); OCCULT BLOOD,URINE NEGATIVE (Neg); PROTEIN,URINE NEGATIVE (Neg); UROBILINOGEN,URINE 0.2 E.U/dL (0.2-1.0)
[2017-07-27 13:40] LABS: UA COLLECTION TYPE CLN CATCH MIDSTREAM
[2017-07-27 13:42] LABS: PRE OP INR 1.1 INR; PRE OP PROTIME 11.4 SECONDS (9.0-12.0)
[2017-07-27 13:47] LABS: ALBUMIN 3.3 G/DL (3.4-5.0); ALBUMIN/GLOBULIN RATIO 0.8 (1.1-1.5); ALKALINE PHOSPHATASE 78 IU/L (46-116); BLOOD UREA NITROGEN 12 MG/DL (7-18); CHLORIDE 102 MMOL/L (99-107); PRE OP ALT 17 U/L (30-65); PRE OP ANION GAP 6 (8-16); PRE OP AST 18 U/L (10-37); PRE OP BILIRUB, TOTAL 0.5 MG/DL (0.0-1.0); PRE OP GLUCOSE 114 MG/DL (70-104); PRE OP SODIUM 142 MMOL/L (135-145); TOTAL CARBON DIOXIDE 33.9 MMOL/L (24-32); TOTAL PROTEIN 7.7 G/DL (6.4-8.2); eGFR 43 ML/MIN
[2017-07-27 13:50] LABS: PRE OP POTASSIUM 3.3 MMOL/L (3.4-5.1)
[2017-07-27 13:51] LABS: HYALINE CASTS 0-3 /LPF (NEGATIVE); MUCUS STRANDS FEW /LPF (Neg); SQUAMOUS EPITHELIAL CELL,UR MANY /LPF (FEW)
[2017-07-27 13:52] LABS: WBC,URINE 0-4 /HPF (0-4)
[2017-07-27 13:53] LABS: BACTERIA,URINE 4+ /HPF (Neg); RBC,URINE NONE SEEN /HPF (0-2); YEAST FEW /HPF (NEGATIVE)
[~2017-07-28] VITALS: Ht 160 cm; Wt 90.7 kg
[2017-07-28] VITALS (8 sets, daily range): BP systolic 133–162; BP diastolic 70–94
[~2017-07-28 05:37] MED LIST: ACET-2119 PO; ALBU8HFA PO; ASPI81TA52 PO; CHLO12TA2 PO; CHOL2000 PO; CLON0.5T12 PO; CODE1CAP54 PO; Cefazolin 2GM/100ML NS IVPB IV ONE; DEXL60CA3 PO; DILT240C33 PO; FURO40TA4 PO; IBAN150T PO; IRON18TA PO; LEVE500T PO; LOPE-155 PO; MAGN400C PO; MINO2.5T19 PO; MULT1TAB74 PO; PENC5CRE TOP; SPIR50TA5 PO; TAPE50TA2 PO; WARF-55 PO; famotidine 20mg tablet PO ONE; ringers solution, lacted 1,000 ML IV SCH
[2017-07-28] MEDS ORDERED: LIDOcaine 1% (10mg/ml) 2ml vial ONE (06:03)
[2017-07-28 07:01] LABS: ISTAT CREATININE 1.2 mg/dL (0.6-1.1); ISTAT HGB 12.9 g/dl (12.0-16.0); ISTAT IONIZED CALCIUM 1.2 mmol/L (1.03-1.32)
[2017-07-28 07:20] LABS: ISTAT K 2.8 mmol/L (3.5-5.1)
[2017-07-28] MEDS ORDERED: potassium Cl 40MEQ/NS 500ml 500 ML IV ONE ×2 (07:25→10:45)
[2017-07-28] MEDS ORDERED: acetaminophen 325mg tablet PO PRN (08:05)
[2017-07-28 12:36] LABS: ISTAT CREATININE 1.1 mg/dL (0.6-1.1); ISTAT HGB 11.6 g/dl (12.0-16.0); ISTAT IONIZED CALCIUM 1.17 mmol/L (1.03-1.32); ISTAT K 3.9 mmol/L (3.5-5.1); POC BUN/CREATININE RATIO 8.2 (6.6-38.0)
[2017-07-28 12:50] LABS: ISTAT CREATININE 1.1 mg/dL (0.6-1.1); ISTAT HGB 12.2 g/dl (12.0-16.0); ISTAT IONIZED CALCIUM 1.19 mmol/L (1.03-1.32); ISTAT K 3.7 mmol/L (3.5-5.1); POC BUN/CREATININE RATIO 9.1 (6.6-38.0)
[2017-07-28] MEDS ORDERED: LIDOcaine 1% 30ml preserv. free vial ONE (13:41)
[2017-07-28] MEDS ORDERED: iohexol 300 MG/1 ML 50ml polymer ONE (13:41)
[2017-07-28] MEDS ORDERED: heparin sodium, porcine/PF 100unit/ml 5ML syringe ONE (13:52)
[2017-07-28] MEDS ORDERED: midazolam 2 mg/2 ml injection ONE (14:50)
[2017-07-28] MEDS ORDERED: ringers solution, lacted 1,000 ML IV ONE (16:01)
[2017-07-28] MEDS ORDERED: morphine 4 MG/ML inj SYRINge IV PRN ×2 (16:05)
[2017-07-28] MEDS ORDERED: ondansetron/PF 4mg/2ml inj IV PRN (16:05)
[2017-07-28] MEDS ORDERED: meperidine/PF 25mg/ml syringe IV PRN ×3 (16:05)
== END 2017-07-28 16:40 | disposition home or self-care (01) ==
LOC: PAS 05:37
PROVIDERS: ATTEND Surgery
DX: C21.1 Malignant neoplasm of anal canal (principal); I12.9 Hypertensive chronic kidney disease with stage 1 through stage 4 chronic kidney disease, or unspecified chronic kidney disease; N18.3 Chronic kidney disease, stage 3 (moderate); E11.22 Type 2 diabetes mellitus with diabetic chronic kidney disease; J43.9 Emphysema, unspecified; E66.9 Obesity, unspecified; K21.9 Gastro-esophageal reflux disease without esophagitis; M79.7 Fibromyalgia; M19.90 Unspecified osteoarthritis, unspecified site; Z86.711 Personal history of pulmonary embolism; Z93.3 Colostomy status; Z87.891 Personal history of nicotine dependence; Z90.710 Acquired absence of both cervix and uterus; Z79.891 Long term (current) use of opiate analgesic; Z85.42 Personal history of malignant neoplasm of other parts of uterus; Z79.82 Long term (current) use of aspirin; Z79.01 Long term (current) use of anticoagulants; Z91.030 Bee allergy status; Z91.018 Allergy to other foods; Z88.2 Allergy status to sulfonamides; Z91.048 Other nonmedicinal substance allergy status; Z88.1 Allergy status to other antibiotic agents; Z88.5 Allergy status to narcotic agent; Z88.6 Allergy status to analgesic agent; Z68.35 Body mass index [BMI] 35.0-35.9, adult; Z90.89 Acquired absence of other organs; Z96.652 Presence of left artificial knee joint; Z90.49 Acquired absence of other specified parts of digestive tract; Z88.8 Allergy status to other drugs, medicaments and biological substances; Z79.899 Other long term (current) drug therapy; Z98.890 Other specified postprocedural states
CPT/HCPCS: 36415; 36561; 71045; 76001; 77001; 80047; 80053; 81001; 82948; 85025; 85610; 85730; A6251; C1788; J0690; J1642; J2250; J2270; J3480; J3490; J7030; J7120; A6250; A7000; Q9967

== ENCOUNTER 2017-11-20 03:08 | Emergency (ER) | payer MEDICARE, BC, OTHER ==
[~2017-11-20] VITALS: Ht 160 cm; Wt 84.5 kg
[~2017-11-20 03:08] MED LIST changes: -Cefazolin 2GM/100ML NS IVPB IV ONE; -famotidine 20mg tablet PO ONE; -ringers solution, lacted 1,000 ML IV SCH
[2017-11-20] MEDS ORDERED: morphine 4 MG/ML inj SYRINge IV ONE (03:25)
[2017-11-20] MEDS ORDERED: ondansetron/PF 4mg/2ml inj IV ONE (03:25)
[2017-11-20] MEDS ORDERED: normal saline 1000ML IV soln IVB ONE (03:25)
[2017-11-20 04:38] LABS: BASOPHILS % (AUTO) 0.2 % (0-1); EOSINOPHILS # (AUTO) 0.1 X10'3 (0-0.9); HEMATOCRIT 29.6 % (35.0-45.0); HEMOGLOBIN 10.2 g/dl (12.0-16.0); LYMPHOCYTES # (AUTO) 0.5 X10'3 (1.1-4.8); LYMPHOCYTES % (AUTO) 13.1 % (21-51); MEAN CORPUSCULAR HEMOGLOBIN 33.7 PG (27.0-31.0); MEAN CORPUSCULAR HGB CONC 34.3 % (33.0-36.5); MEAN CORPUSCULAR VOLUME 98.3 FL (78-98); MEAN PLATELET VOLUME 7.8 FL (7.4-10.4); MONOCYTES # (AUTO) 0.6 X10'3 (0-0.9); MONOCYTES % (AUTO) 15.8 % (2-12); NEUTROPHILS # (AUTO) 2.8 X10'3 (1.8-7.7); NEUTROPHILS % (AUTO) 68.9 % (42-75); PLATELET COUNT 225 X10'3 (140-440); RED BLOOD COUNT 3.02 X10'6 (4.20-5.60); RED CELL DISTRIBUTION WIDTH 14.8 % (11.5-14.5)
[2017-11-20 04:48] LABS: INR 3.1 INR; PARTIAL THROMBOPLASTIN TIME 40 SECONDS (22-32); PROTHROMBIN TIME 30.8 SECONDS (9.0-12.0)
[2017-11-20 04:51] LABS: ALANINE AMINOTRANSFERASE 18 U/L (12-78); ALBUMIN/GLOBULIN RATIO 0.9 (1.1-1.5); ALKALINE PHOSPHATASE 62 IU/L (46-116); ANION GAP 9 (8-16); ASPARTATE AMINO TRANSFERASE 20 U/L (10-37); BILIRUBIN,TOTAL 0.4 MG/DL (0.1-1.0); BLOOD UREA NITROGEN 11 MG/DL (7-18); BUN/CREATININE RATIO 10.6 (6.6-38.0); CHLORIDE 104 MMOL/L (99-107); CREATININE 1.04 MG/DL (0.40-0.90); GLUCOSE 106 MG/DL (70-104); LIPASE 112 U/L (73-393); POTASSIUM 3.4 MMOL/L (3.5-5.1); SODIUM 141 MMOL/L (135-145); TOTAL PROTEIN 6.4 G/DL (6.4-8.2); eGFR 51 ML/MIN
[2017-11-20 05:30] LABS: CLARITY,URINE CLEAR (Clear); COLOR,URINE YELLOW (Yellow); GLUCOSE, URINE NEGATIVE (Neg); KETONES,URINE NEGATIVE (Neg); LEUKOCYTE ESTERASE ,URINE SMALL (Neg); NITRITES, URINE NEGATIVE (Neg); OCCULT BLOOD,URINE NEGATIVE (Neg); PROTEIN,URINE TRACE mg/dl (Neg); UROBILINOGEN,URINE 0.2 E.U/dL (0.2-1.0)
[2017-11-20 05:31] LABS: UA COLLECTION TYPE CLN CATCH MIDSTREAM
[2017-11-20 05:33] LABS: RBC,URINE 0-2 /HPF (0-2); WBC,URINE 30-50 /HPF (0-4)
[2017-11-20 05:34] LABS: BACTERIA,URINE FEW /HPF (Neg); SQUAMOUS EPITHELIAL CELL,UR MODERATE /LPF (FEW)
[2017-11-20] MEDS ORDERED: CEPH-572 PO (06:48)
[2017-11-20] MEDS ORDERED: acetaminophen 325mg tablet PO ONE (07:00)
[2017-11-20 07:03] VITALS: BP 179/89
== END 2017-11-20 07:06 | disposition home or self-care (01) ==
LOC: ER 03:08
DX: N39.0 Urinary tract infection, site not specified (principal); M54.5 Low back pain; J44.9 Chronic obstructive pulmonary disease, unspecified; N18.9 Chronic kidney disease, unspecified; M79.7 Fibromyalgia; Z86.711 Personal history of pulmonary embolism; Z93.3 Colostomy status; Z85.048 Personal history of other malignant neoplasm of rectum, rectosigmoid junction, and anus; Z90.49 Acquired absence of other specified parts of digestive tract; Z98.890 Other specified postprocedural states; Z79.01 Long term (current) use of anticoagulants; Z79.899 Other long term (current) drug therapy; Z79.82 Long term (current) use of aspirin; Z88.8 Allergy status to other drugs, medicaments and biological substances; Z88.1 Allergy status to other antibiotic agents; Z88.5 Allergy status to narcotic agent
CPT/HCPCS: 36415; 71045; 72100; 74176; 80053; 81001; 83690; 85025; 85610; 85730; 87088; 93005; 96374; 96375; 99285; J2270; J2405; J7030

== ENCOUNTER 2018-06-01 05:59 | Inpatient (IN) | payer MEDICARE, BC, OTHER ==
[2018-05-28 17:20] LABS: BASOPHILS % (AUTO) 0.7 % (0-1); EOSINOPHILS # (AUTO) 0.2 X10'3 (0-0.9); EOSINOPHILS % (AUTO) 3.1 % (0-6); LYMPHOCYTES # (AUTO) 0.7 X10'3 (1.1-4.8); LYMPHOCYTES % (AUTO) 11.9 % (21-51); MEAN CORPUSCULAR HEMOGLOBIN 31.9 PG (27.0-31.0); MEAN CORPUSCULAR HGB CONC 33.3 g/dL (33.0-36.5); MEAN CORPUSCULAR VOLUME 95.9 FL (78-98); MONOCYTES # (AUTO) 0.5 X10'3 (0-0.9); MONOCYTES % (AUTO) 8.8 % (2-12); NEUTROPHILS # (AUTO) 4.3 X10'3 (1.8-7.7); NEUTROPHILS % (AUTO) 75.5 % (42-75); PRE OP PLATELET COUNT 254 X10'3 (140-440); RED BLOOD COUNT 3.34 X10'6 (4.20-5.60); RED CELL DISTRIBUTION WIDTH 14.8 % (11.5-14.5)
[2018-05-28 17:25] LABS: CLARITY,URINE CLEAR (Clear); COLOR,URINE YELLOW (Yellow); GLUCOSE, URINE NEGATIVE (Neg); KETONES,URINE NEGATIVE (Neg); LEUKOCYTE ESTERASE ,URINE NEGATIVE (Neg); NITRITES, URINE NEGATIVE (Neg); OCCULT BLOOD,URINE NEGATIVE (Neg); PH,URINE 7.5 (4.8-8.0); PROTEIN,URINE NEGATIVE (Neg); UROBILINOGEN,URINE 0.2 E.U/dL (0.2-1.0)
[2018-05-28 17:26] LABS: PRE OP HEMOGLOBIN 10.7 g/dL (12.0-16.0)
[2018-05-28 17:29] LABS: UA COLLECTION TYPE CLN CATCH MIDSTREAM
[2018-05-28 17:43] LABS: ALBUMIN 3.3 G/DL (3.4-5.0); ALBUMIN/GLOBULIN RATIO 0.9 (1.1-1.5); ALKALINE PHOSPHATASE 61 IU/L (46-116); BLOOD UREA NITROGEN 13 MG/DL (7-18); BUN/CREATININE RATIO 12.1 (6.6-38.0); CHLORIDE 104 MMOL/L (99-107); CREATININE 1.07 MG/DL (0.40-0.90); PRE OP ALT 23 U/L (30-65); PRE OP ANION GAP 3 (8-16); PRE OP AST 22 U/L (10-37); PRE OP BILIRUB, TOTAL 0.5 MG/DL (0.0-1.0); PRE OP GLUCOSE 122 MG/DL (70-104); PRE OP POTASSIUM 3.7 MMOL/L (3.4-5.1); PRE OP SODIUM 142 MMOL/L (135-145); TOTAL CARBON DIOXIDE 34.7 MMOL/L (24-32); eGFR 49 ML/MIN
[2018-05-28 17:44] LABS: PRE OP INR 1.5 INR
[2018-06-01] VITALS (17 sets, daily range): BP systolic 119–164; BP diastolic 48–84
[~2018-06-01] VITALS: Ht 160 cm; Wt 84.7 kg
[~2018-06-01 05:59] MED LIST changes: -CLON0.5T12 PO; -IBAN150T PO; -LEVE500T PO; -TAPE50TA2 PO; +TAPE75TA2 PO; +albuterol 2.5 MG/3 ML nebule NEB ONE; +ceFAZolin 2gm in dextrose, iso 100 ML IV ONE; +famotidine 20mg tablet PO ONE; +ringers solution, lacted 1,000 ML IV SCH
[2018-06-01] MEDS ORDERED: LIDOcaine 1% (10mg/ml) 2ml vial ONE (06:12)
[2018-06-01 07:21] LABS: PARTIAL THROMBOPLASTIN TIME 32 SECONDS (22-32); PROTHROMBIN TIME 9.9 SECONDS (9.0-12.0)
[2018-06-01] MEDS ORDERED: TAPE75TA2 PO (07:21)
[2018-06-01] MEDS ORDERED: POTASSIUM PO (07:21)
[2018-06-01] MEDS ORDERED: ipratropium/albuterol 3ml nebule ONE (08:05)
[2018-06-01] MEDS ORDERED: fentaNYL /PF 50mcg/ml 5ml ampule ONE (08:25)
[2018-06-01] MEDS ORDERED: sevoflurane 250ml liquid IH ONE (08:26)
[2018-06-01] MEDS ORDERED: neostigmine methylsulfate 1 MG/ML 10ml vial ONE (08:26)
[2018-06-01] MEDS ORDERED: glycopyrrolate 0.2mg/ml inj ONE (08:26)
[2018-06-01] MEDS ORDERED: LIDOcaine 2% (20mg/ml) 5ml vial ONE (08:27)
[2018-06-01] MEDS ORDERED: propofol inj 20 ML IV ONE (08:27)
[2018-06-01] MEDS ORDERED: rocuronium 10mg/ml inj IV ONE (08:27)
[2018-06-01] MEDS ORDERED: BUPIVAcaine/PF 2.5mg/ml (0.25%) 10ml vial ONE (08:33)
[2018-06-01] MEDS ORDERED: sugammadex 200mg/2ml injection IV ONE (09:18)
[2018-06-01] MEDS ORDERED: dexamethasone sod phosphate 4mg/ml inj. ONE (10:14)
[2018-06-01] MEDS ORDERED: labetalol 20mg/4ml (5mg/ml) syringe IV ONE (10:14)
[2018-06-01] MEDS ORDERED: ondansetron/PF 4mg/2ml inj ONE (10:14)
--- NOTE | 2018-06-01 10:45 | NUR ---
Received from OR via BED , accompanied by Anesthesiologist DR OCAMPO and report given by Anesthesiolgist. PATIENT WAKING UP, DENIES PAIN, V/S WNL, NEUROVASCULAR CHECKS INTACT, 20G PIV RUE, SCD ON, MILA CATH, COLOSTOMY TAKE DOWN WITH DRESSINGS AT BOTH SURGICAL SIGHTS CDI
[2018-06-01] MEDS ORDERED: ringers solution, lacted 1,000 ML IV SCH (10:52)
[2018-06-01] MEDS ORDERED: ondansetron/PF 4mg/2ml inj IV PRN ×2 (10:55→11:20)
[2018-06-01] MEDS: morphine 4 MG/ML inj SYRINge IV PRN ×3 (11:14→11:47)
[2018-06-01] MEDS ORDERED: HYDROcodone/acetaminophen 5mg/325mg tablet PO PRN (11:20)
[2018-06-01] MEDS ORDERED: HYDROcodone/acetaminophen 10/325mg tab PO PRN (11:20)
--- NOTE | 2018-06-01 11:45 | NUR ---
PATIENT WAKING UP, DENIES PAIN, V/S WNL, NEUROVASCULAR CHECKS INTACT, 20G PIV RUE, SCD ON, MILA CATH, COLOSTOMY TAKE DOWN WITH DRESSINGS AT BOTH SURGICAL SIGHTS CDI. TAKEN TO SURGICAL WITH ALL BELONGINGS AND HOOKED UP TO MONITORS IN ROOM AND REPORT GIVEN TO VIBRATORY PILE DRIVER WHO HAS TAKEN OVER PATIENT CARE
[2018-06-01] MEDS ORDERED: albuterol 2.5 MG/3 ML nebule NEB PRN (12:05)
[2018-06-01] MEDS ORDERED: [UNRECOGNIZED DRUG - REMARK] PO PRN ×2 (12:15)
[2018-06-01] MEDS ORDERED: naloxone 0.4 mg/ml inj IV PRN (12:55)
[2018-06-01] MEDS ORDERED: CADD PCA waste documentation MC PRN (12:55)
--- NOTE | 2018-06-01 13:14 | NUR ---
Notified Dr. Rowley over the phone about patient's O2 sat were running low on the 80's O2 saturation and so I increased the oxygen to 6 lpm/nc. I encouraged patient to do deep breathing exercise. Patient was 90% on 6 lmp/nc. I also let Dr. Rowley know that patient has no pain medicine order yet. Received order to start patient on Morphine CADD.
[2018-06-01] MEDS ORDERED: morphine 4 MG/ML inj SYRINge IV ONE (14:05)
--- NOTE | 2018-06-01 14:09 | NUR ---
Pharmacist said that Morphine CADD has to be prepared and not ready yet at this time. I was advised to call MD to get a dose of Morphine IV while waiting. Called Dr. Rowley about this, received order to give Morphine 2mg IV x 1
[2018-06-01] MEDS: potassium CL 20mEq in D5-1/2NS 1,000 ML IV SCH ×2 (14:12→23:47)
[2018-06-01] MEDS: morphine/NS 5 mg/ml CADD 50 ML IV SCH ×6 (14:43→23:00)
--- NOTE | 2018-06-01 14:51 | NUR ---
Morphine CADD started on standard setting per MD order. Educated patient about the use of PRODUCT ENGINEERING MANAGER to manage her pain. Patient verbalized understanding of all instruction made
[2018-06-01] MEDS: ceFAZolin 1GM/D5W- ADD-VANTAGE 50 ML IV SCH (16:10)
[2018-06-01] MEDS: pantoprazole 40mg Tablet.DR PO SCH (17:35)
--- NOTE | 2018-06-01 17:37 | NUR ---
Patient has not urinated yet at this time since she got to her room, bladder scan shows 285 ml.
--- NOTE | 2018-06-01 17:40 | NUR ---
Pageopal Painting regarding bladder scan of 285 ml Addendum: 06/01/18 at 1807 by Eve Paredes RN Received order from Dr. Painting to have patient straight cath in 2 hrs if patient still has not urinated.
[2018-06-01] MEDS ORDERED: ipratropium/albuterol 3ml nebule NEB PRN (20:10)
[2018-06-01] MEDS: furosemide 40mg tablet PO SCH (20:24)
[2018-06-01] MEDS: minoxidil 2.5mg tablet PO SCH (20:24)
[2018-06-01] MEDS: enoxaparin 80mg/0.8ml syringe SUBCUT SCH (20:25)
[2018-06-01] MEDS ORDERED: warfarin 5mg tablet PO SCH (21:00)
[2018-06-01] MEDS: ipratropium/albuterol 3ml nebule NEB SCH (23:11)
--- NOTE | 2018-06-01 23:53 | NUR ---
RT reports lung sounds wet. Called MD. ordered fluids to be held for a few hours and reassess. If lungs clear, resume fluids. MD will order stat chest xray.
[2018-06-02] VITALS: BP 133/61
[2018-06-02] MEDS: morphine/NS 5 mg/ml CADD 50 ML IV SCH ×12 (01:00→22:54)
--- NOTE | 2018-06-02 02:57 | NUR ---
Bladder scanned pt. 274 mL in bladder. Will wait for RT to treat pt and reassess ability to void via commode.
[2018-06-02] MEDS: ceFAZolin 1GM/D5W- ADD-VANTAGE 50 ML IV SCH (03:00)
--- NOTE | 2018-06-02 03:00 | NUR ---
Called MD to advise of CXR complete. MD states he is not here to read. Advised RT is currently evaluating pt. MD states to resume or continue to hold fluids based on RT evaluation. RT states pt still sounds wet. Placed fluids at 20mL per hour due to CADD.
[2018-06-02] MEDS: ipratropium/albuterol 3ml nebule NEB SCH ×6 (03:29→23:48)
[2018-06-02 05:17] LABS: BASOPHILS # (AUTO) 0.1 X10'3 (0-0.2); BASOPHILS % (AUTO) 0.4 % (0-1); EOSINOPHILS % (AUTO) 0.1 % (0-6); HEMATOCRIT 31.8 % (35.0-45.0); HEMOGLOBIN 10.4 g/dl (12.0-16.0); LYMPHOCYTES # (AUTO) 0.8 X10'3 (1.1-4.8); LYMPHOCYTES % (AUTO) 5.5 % (21-51); MEAN CORPUSCULAR HEMOGLOBIN 32.2 PG (27.0-31.0); MEAN CORPUSCULAR HGB CONC 32.6 g/dL (33.0-36.5); MEAN CORPUSCULAR VOLUME 98.7 FL (78-98); MEAN PLATELET VOLUME 8.2 FL (7.4-10.4); MONOCYTES # (AUTO) 1.7 X10'3 (0-0.9); MONOCYTES % (AUTO) 11.9 % (2-12); NEUTROPHILS # (AUTO) 12.1 X10'3 (1.8-7.7); NEUTROPHILS % (AUTO) 82.1 % (42-75); PLATELET COUNT 259 X10'3 (140-440); RED BLOOD COUNT 3.23 X10'6 (4.20-5.60); RED CELL DISTRIBUTION WIDTH 15.4 % (11.5-14.5); WHITE BLOOD COUNT 14.7 X10'3 (4.5-11.0)
[2018-06-02 05:22] LABS: ALBUMIN 3.1 G/DL (3.4-5.0); ANION GAP 9 (8-16); BLOOD UREA NITROGEN 21 MG/DL (7-18); BUN/CREATININE RATIO 12.7 (6.6-38.0); CALCIUM 8.5 MG/DL (8.5-10.1); CHLORIDE 99 MMOL/L (99-107); CREATININE 1.65 MG/DL (0.40-0.90); GLUCOSE 118 MG/DL (70-104); POTASSIUM 4.1 MMOL/L (3.5-5.1); SODIUM 135 MMOL/L (135-145); TOTAL CARBON DIOXIDE 27.4 MMOL/L (24-32); eGFR 30 ML/MIN
[2018-06-02 05:23] LABS: PROTHROMBIN TIME 10.2 SECONDS (9.0-12.0)
--- NOTE | 2018-06-02 06:39 | NUR ---
Problems reprioritized. Patient report given, questions answered & plan of care reviewed with JASSI Holland.
[2018-06-02 07:00] VITALS: BP 141/39
--- NOTE | 2018-06-02 07:05 | NUR ---
Patient in room [facility]. I have received report from Sandra KEENE and had the opportunity to ask questions and assume patient care.
[2018-06-02] MEDS: pantoprazole 40mg Tablet.DR PO SCH ×2 (07:30→17:14)
[2018-06-02] MEDS: furosemide 40mg tablet PO SCH ×2 (07:30→19:43)
[2018-06-02] MEDS: multivitamins, therapeutics tablet PO SCH (07:30)
[2018-06-02] MEDS: minoxidil 2.5mg tablet PO SCH ×2 (07:31→19:43)
[2018-06-02] MEDS: aspirin 81mg tablet.DR PO SCH (07:31)
[2018-06-02] MEDS: spironolactone 50 MG tablet PO SCH (07:31)
[2018-06-02] MEDS: magnesium oxide 400mg tablet PO SCH (07:31)
[2018-06-02] MEDS: vitamin D (cholecalciferol) 1,000 unit tablet PO SCH (07:31)
[2018-06-02] MEDS: diltiazem CD 120mg capsule (once-daily) PO SCH (07:32)
[2018-06-02] MEDS: enoxaparin 80mg/0.8ml syringe SUBCUT SCH ×2 (07:32→19:43)
[2018-06-02] MEDS: BUDESONIDE 0.25 MG/2 ML AMPUL.NEB IH SCH ×2 (07:53→19:48)
[2018-06-02] MEDS ORDERED: ceFAZolin 1GM/D5W- ADD-VANTAGE 50 ML IV ONE (08:00)
--- NOTE | 2018-06-02 12:13 | NUR ---
patient unable to void. dr Damon aware, Dr grififth aware. Straight cathed, 250 drained. Order given for Evans catheter if patient unable to void for four hours following straight cath.
[2018-06-02] MEDS: potassium CL 20mEq in D5-1/2NS 1,000 ML IV SCH (12:17)
[2018-06-02] MEDS ORDERED: COU7.5T PO (13:37)
[2018-06-02] MEDS ORDERED: warfarin 5mg tablet PO SCH (13:53)
--- NOTE | 2018-06-02 17:18 | NUR ---
sands catheter 16FR placed .Tolerated procedure well. draining yellow urine clear.
[2018-06-02 18:00] VITALS: BP 147/53
--- NOTE | 2018-06-02 18:43 | NUR ---
Problems reprioritized. Patient report given, questions answered & plan of care reviewed with Sandra KEENE.
--- NOTE | 2018-06-02 19:00 | NUR ---
Per daytime RN, Nelson asked RN if pt was receiving fluids. RN stated patient was not on fluids forgetting that the patient had a fluids order but rate had been reduced until the chest xray from the previous night had been read. Therefore, the fluid order was not clarified with the MD. Upon auscultation I hear fine crackles throughout the bases. Spoke with RT who confirmed crackles and wheezing in upper airway. Left fluids at 20mL. Will req daytime RN to clarify fluid order.
[2018-06-02] MEDS: warfarin 7.5mg tablet PO SCH (22:51)
--- NOTE | 2018-06-02 23:15 | NUR ---
Pt fever 100.6. Encouraged IS use, will reassess.
[2018-06-03] VITALS: BP 142/51
[2018-06-03] MEDS: acetaminophen 325mg tablet PO PRN ×2 (00:11→16:04)
[2018-06-03] MEDS: potassium CL 20mEq in D5-1/2NS 1,000 ML IV SCH (00:47)
[2018-06-03] MEDS: morphine/NS 5 mg/ml CADD 50 ML IV SCH ×6 (01:00→11:00)
[2018-06-03] MEDS: ipratropium/albuterol 3ml nebule NEB SCH ×5 (03:14→19:29)
[2018-06-03 04:30] LABS: BASOPHILS # (AUTO) 0.1 X10'3 (0-0.2); BASOPHILS % (AUTO) 0.3 % (0-1); EOSINOPHILS % (AUTO) 0.2 % (0-6); HEMATOCRIT 26.8 % (35.0-45.0); LYMPHOCYTES # (AUTO) 0.9 X10'3 (1.1-4.8); LYMPHOCYTES % (AUTO) 5.4 % (21-51); MEAN CORPUSCULAR HEMOGLOBIN 32.2 PG (27.0-31.0); MEAN CORPUSCULAR HGB CONC 33.4 g/dL (33.0-36.5); MEAN CORPUSCULAR VOLUME 96.3 FL (78-98); MEAN PLATELET VOLUME 8.2 FL (7.4-10.4); MONOCYTES % (AUTO) 11.9 % (2-12); NEUTROPHILS % (AUTO) 82.2 % (42-75); PLATELET COUNT 217 X10'3 (140-440); RED BLOOD COUNT 2.79 X10'6 (4.20-5.60); RED CELL DISTRIBUTION WIDTH 15.1 % (11.5-14.5); WHITE BLOOD COUNT 17.1 X10'3 (4.5-11.0)
[2018-06-03 04:31] LABS: ALBUMIN 2.6 G/DL (3.4-5.0); ANION GAP 9 (8-16); BLOOD UREA NITROGEN 29 MG/DL (7-18); BUN/CREATININE RATIO 16.7 (6.6-38.0); CHLORIDE 97 MMOL/L (99-107); CREATININE 1.74 MG/DL (0.40-0.90); GLUCOSE 108 MG/DL (70-104); POTASSIUM 4.1 MMOL/L (3.5-5.1); SODIUM 132 MMOL/L (135-145); TOTAL CARBON DIOXIDE 26.5 MMOL/L (24-32); eGFR 28 ML/MIN
[2018-06-03 04:43] LABS: INR 1.1 INR; PROTHROMBIN TIME 10.7 SECONDS (9.0-12.0)
--- NOTE | 2018-06-03 06:12 | NUR ---
Problems reprioritized. Patient report given, questions answered & plan of care reviewed with JASSI Aguilar.
[2018-06-03 07:41] VITALS: BP 131/41
[2018-06-03] MEDS: spironolactone 50 MG tablet PO SCH (08:15)
[2018-06-03] MEDS: vitamin D (cholecalciferol) 1,000 unit tablet PO SCH (08:15)
[2018-06-03] MEDS: aspirin 81mg tablet.DR PO SCH (08:15)
[2018-06-03] MEDS: furosemide 40mg tablet PO SCH (08:16)
[2018-06-03] MEDS: multivitamins, therapeutics tablet PO SCH (08:16)
[2018-06-03] MEDS: minoxidil 2.5mg tablet PO SCH ×2 (08:16→20:51)
[2018-06-03] MEDS: magnesium oxide 400mg tablet PO SCH (08:16)
[2018-06-03] MEDS: diltiazem CD 120mg capsule (once-daily) PO SCH (08:17)
[2018-06-03] MEDS: enoxaparin 80mg/0.8ml syringe SUBCUT SCH (08:17)
[2018-06-03] MEDS: pantoprazole 40mg Tablet.DR PO SCH ×2 (08:17→17:38)
[2018-06-03] MEDS: BUDESONIDE 0.25 MG/2 ML AMPUL.NEB IH SCH ×2 (08:39→19:29)
--- NOTE | 2018-06-03 11:04 | NUR ---
PAGER ID: [phone] MESSAGE: [phone] GOPAL GOMES PT. CANNOT RISE ABOVE 88 SA02 WITHOUT NONREBREATHER MASK AT 10L O2. SHALLOW BREATHING, [place]. RT NOTIFIED. ISABELA [id number]
[2018-06-03] MEDS ORDERED: furosemide 40mg/4ml inj IV ONE (11:35)
[2018-06-03 12:00] VITALS: BP 121/50
[2018-06-03 12:10] LABS: ABG BASE EXCESS 2.3 mmol/L (-2.0-3.0); ABG HCO3 27.2 mmol/L (22.0-26.0); ABG OXYGEN SATURATION 97.6 % (95-98); ABG PCO2 (T) 43.7 mmHg (32.0-45.0); ABG PH (T) 7.412 (7.350-7.450); ABG PO2 (T) 104.8 mmHg (83-108); ALLEN'S TEST Positive; FCOHb 0.3 % (0.5-1.5); FLOW 15 L/min; FMetHb 0.1 % (0.3-1.12); FO2Hb 97.2 % (94-100); RESPIRATORY RATE (OBSERVED) 18 b/min
[2018-06-03] MEDS: morphine 2 MG/ML inj. syringe IV PRN ×2 (16:05→20:48)
--- NOTE | 2018-06-03 16:44 | NUR ---
PT HAS FEVER OF 101.4 AUX. NOTIFIED AND TYLENOL GIVEN PER ORDER. WILL CONT. TO MONITOR FOR ANY CHANGES.
[2018-06-03] MEDS: levoFLOXACIN-Levaquin 500mg/D5 100 ML IV SCH (17:38)
--- NOTE | 2018-06-03 18:52 | NUR ---
pt. has not changed in condition. Sitting up awake and alert in bed. Gave report to Shannan KEENE.
--- NOTE | 2018-06-03 18:53 | NUR ---
Patient in room [facility]. I have received report from ISABELA KEENE and had the opportunity to ask questions and assume patient care.
[2018-06-03 20:00] VITALS: BP 117/56
[2018-06-03] MEDS: warfarin 5mg tablet PO SCH (20:51)
[2018-06-03] MEDS: furosemide 20 MG/2 ML vial IV SCH (20:52)
[2018-06-04] VITALS: BP 131/58
[2018-06-04] MEDS: ipratropium/albuterol 3ml nebule NEB SCH ×7 (00:05→23:15)
[2018-06-04 04:40] LABS: BASOPHILS % (AUTO) 0.1 % (0-1); EOSINOPHILS # (AUTO) 0.1 X10'3 (0-0.9); EOSINOPHILS % (AUTO) 0.8 % (0-6); HEMATOCRIT 25.4 % (35.0-45.0); HEMOGLOBIN 8.5 g/dl (12.0-16.0); LYMPHOCYTES # (AUTO) 0.5 X10'3 (1.1-4.8); LYMPHOCYTES % (AUTO) 3.3 % (21-51); MEAN CORPUSCULAR HEMOGLOBIN 32.1 PG (27.0-31.0); MEAN CORPUSCULAR HGB CONC 33.5 g/dL (33.0-36.5); MEAN CORPUSCULAR VOLUME 95.8 FL (78-98); MEAN PLATELET VOLUME 8.4 FL (7.4-10.4); MONOCYTES # (AUTO) 1.6 X10'3 (0-0.9); MONOCYTES % (AUTO) 10.6 % (2-12); NEUTROPHILS # (AUTO) 12.5 X10'3 (1.8-7.7); NEUTROPHILS % (AUTO) 85.2 % (42-75); PLATELET COUNT 207 X10'3 (140-440); RED BLOOD COUNT 2.65 X10'6 (4.20-5.60); RED CELL DISTRIBUTION WIDTH 15.5 % (11.5-14.5); WHITE BLOOD COUNT 14.7 X10'3 (4.5-11.0)
[2018-06-04 04:57] LABS: ALBUMIN 2.5 G/DL (3.4-5.0); ANION GAP 9 (8-16); BLOOD UREA NITROGEN 37 MG/DL (7-18); BUN/CREATININE RATIO 16.8 (6.6-38.0); CALCIUM 7.7 MG/DL (8.5-10.1); CHLORIDE 97 MMOL/L (99-107); GLUCOSE 91 MG/DL (70-104); POTASSIUM 4.3 MMOL/L (3.5-5.1); SODIUM 133 MMOL/L (135-145); TOTAL CARBON DIOXIDE 26.9 MMOL/L (24-32); eGFR 21 ML/MIN
[2018-06-04 05:02] LABS: PROTHROMBIN TIME 10.6 SECONDS (9.0-12.0)
--- NOTE | 2018-06-04 06:30 | NUR ---
Problems reprioritized. Patient report given, questions answered & plan of care reviewed with ISABELA KEENE.
[2018-06-04] MEDS: BUDESONIDE 0.25 MG/2 ML AMPUL.NEB IH SCH ×2 (07:16→19:56)
[2018-06-04 08:00] VITALS: BP 122/46
[2018-06-04] MEDS: aspirin 81mg tablet.DR PO SCH (09:05)
[2018-06-04] MEDS: magnesium oxide 400mg tablet PO SCH (09:06)
[2018-06-04] MEDS: diltiazem CD 120mg capsule (once-daily) PO SCH (09:06)
[2018-06-04] MEDS: minoxidil 2.5mg tablet PO SCH ×2 (09:07→20:54)
[2018-06-04] MEDS: spironolactone 50 MG tablet PO SCH (09:07)
[2018-06-04] MEDS: furosemide 20 MG/2 ML vial IV SCH (09:07)
[2018-06-04] MEDS: enoxaparin 80mg/0.8ml syringe SUBCUT SCH (09:08)
[2018-06-04] MEDS: multivitamins, therapeutics tablet PO SCH (09:08)
[2018-06-04] MEDS: levoFLOXACIN-Levaquin 500mg/D5 100 ML IV SCH (09:09)
[2018-06-04] MEDS: vitamin D (cholecalciferol) 1,000 unit tablet PO SCH (09:12)
[2018-06-04] MEDS: pantoprazole 40mg Tablet.DR PO SCH (09:24)
[2018-06-04 11:00] VITALS: BP 123/63
--- NOTE | 2018-06-04 14:00 | NUR ---
DC'D FC. WILL CONT. TO MONITOR PT'S OUTPUT ON MY SHIFT.
[2018-06-04] MEDS: normal saline 1000ml 1,000 ML IV SCH (14:44)
--- NOTE | 2018-06-04 16:05 | NUR ---
PT. BLADDER SCANNED - 193
--- NOTE | 2018-06-04 17:04 | NUR ---
PAGER ID: [phone] MESSAGE: [phone] GOPAL GOMES POSITIVE BLOOD CULTURES FROM ANAROBIC TUBE, DRAWN 06/04 1715 FROM . GRAM NEG. RODS. PT. AWARE OF POSITIVE RESULT. ISABELA KEENE [id number]
--- NOTE | 2018-06-04 17:20 | NUR ---
PAGER ID: [phone] MESSAGE: [phone] GOPAL GOMES PLEASE CALL ME TO CLARIFY Lasix order. also pt. has not voided since fc removed at 1400. she has 193 showing from bladder scan. may we have order to straight cath. with parameters if necessary? Lauren [phone]
--- NOTE | 2018-06-04 17:59 | NUR ---
N/O to straight cath. pt if > 500ml urine in bladder. see misc. nrsg order. Bladder scanned 207 in bladder at this time.
--- NOTE | 2018-06-04 19:10 | NUR ---
PT IN A STABLE CONDITION, COMFORTABLE SITTING UP IN BED WITH 02 ON, NO NEEDS AT THIS TIME. GAVE REPORT TO ELICIA KEENE.
--- NOTE | 2018-06-04 19:11 | NUR ---
Patient in room [facility]. I have received report from ISABELA KEENE and had the opportunity to ask questions and assume patient care.
[2018-06-04] MEDS: morphine 2 MG/ML inj. syringe IV PRN (19:39)
[2018-06-04 20:00] VITALS: BP 121/42
[2018-06-04] MEDS: lactobacillus rhamnosus 10,000 MMU CELLS/CAPSULE PO SCH (20:52)
[2018-06-04] MEDS: warfarin 7.5mg tablet PO SCH (20:54)
[2018-06-04] MEDS: warfarin 5mg tablet PO SCH (21:00)
[2018-06-05] VITALS: BP 135/52
[2018-06-05] MEDS: morphine 2 MG/ML inj. syringe IV PRN ×3 (01:11→14:33)
[2018-06-05] MEDS: ipratropium/albuterol 3ml nebule NEB SCH ×6 (03:19→23:00)
--- NOTE | 2018-06-05 06:10 | NUR ---
Patient in room [facility]. I have received report from Valery Rasmussen RN and had the opportunity to ask questions and assume patient care.
[2018-06-05 06:30] VITALS: BP 134/51
--- NOTE | 2018-06-05 06:30 | NUR ---
Problems reprioritized. Patient report given, questions answered & plan of care reviewed with CARMINE RN.
[2018-06-05 06:41] LABS: ALBUMIN 2.5 G/DL (3.4-5.0); ANION GAP 13 (8-16); BLOOD UREA NITROGEN 39 MG/DL (7-18); BUN/CREATININE RATIO 21.5 (6.6-38.0); CALCIUM 8.2 MG/DL (8.5-10.1); CHLORIDE 100 MMOL/L (99-107); CREATININE 1.81 MG/DL (0.40-0.90); GLUCOSE 94 MG/DL (70-104); POTASSIUM 4.3 MMOL/L (3.5-5.1); SODIUM 138 MMOL/L (135-145); TOTAL CARBON DIOXIDE 24.8 MMOL/L (24-32); eGFR 27 ML/MIN
[2018-06-05 06:47] LABS: BASOPHILS % (AUTO) 0.1 % (0-1); EOSINOPHILS # (AUTO) 0.1 X10'3 (0-0.9); EOSINOPHILS % (AUTO) 0.5 % (0-6); HEMATOCRIT 25.7 % (35.0-45.0); HEMOGLOBIN 8.6 g/dl (12.0-16.0); LYMPHOCYTES # (AUTO) 0.4 X10'3 (1.1-4.8); LYMPHOCYTES % (AUTO) 3.3 % (21-51); MEAN CORPUSCULAR HEMOGLOBIN 32.1 PG (27.0-31.0); MEAN CORPUSCULAR HGB CONC 33.3 g/dL (33.0-36.5); MEAN CORPUSCULAR VOLUME 96.4 FL (78-98); MEAN PLATELET VOLUME 8.7 FL (7.4-10.4); MONOCYTES # (AUTO) 1.4 X10'3 (0-0.9); MONOCYTES % (AUTO) 11.1 % (2-12); PLATELET COUNT 241 X10'3 (140-440); RED BLOOD COUNT 2.67 X10'6 (4.20-5.60); RED CELL DISTRIBUTION WIDTH 14.9 % (11.5-14.5); WHITE BLOOD COUNT 12.9 X10'3 (4.5-11.0)
[2018-06-05] MEDS: BUDESONIDE 0.25 MG/2 ML AMPUL.NEB IH SCH ×2 (07:01→20:34)
[2018-06-05 07:08] LABS: INR 1.3 INR; PROTHROMBIN TIME 12.7 SECONDS (9.0-12.0)
[2018-06-05] MEDS: levoFLOXACIN-Levaquin 250mg/D5 50 ML IV SCH (07:35)
[2018-06-05] MEDS: diltiazem CD 120mg capsule (once-daily) PO SCH (07:37)
[2018-06-05] MEDS: aspirin 81mg tablet.DR PO SCH (07:37)
[2018-06-05] MEDS: magnesium oxide 400mg tablet PO SCH (07:37)
[2018-06-05] MEDS: vitamin D (cholecalciferol) 1,000 unit tablet PO SCH (07:37)
[2018-06-05] MEDS: enoxaparin 80mg/0.8ml syringe SUBCUT SCH (07:37)
[2018-06-05] MEDS: lactobacillus rhamnosus 10,000 MMU CELLS/CAPSULE PO SCH ×2 (07:37→20:59)
[2018-06-05] MEDS: minoxidil 2.5mg tablet PO SCH ×2 (07:37→20:58)
[2018-06-05] MEDS: multivitamins, therapeutics tablet PO SCH (07:37)
[2018-06-05] MEDS: normal saline 1000ml 1,000 ML IV SCH ×2 (10:25→14:34)
[2018-06-05 11:00] VITALS: BP 115/44
--- NOTE | 2018-06-05 18:05 | NUR ---
Problems reprioritized. Patient report given, questions answered & plan of care reviewed with Valery Rasmussen RN.
--- NOTE | 2018-06-05 18:30 | NUR ---
Patient in room [facility]. I have received report from CARMINE KEENE and had the opportunity to ask questions and assume patient care.
[2018-06-05 20:00] VITALS: BP 134/52
[2018-06-05] MEDS: warfarin 5mg tablet PO SCH (20:59)
[2018-06-05] MEDS: acetaminophen 325mg tablet PO PRN (22:51)
[2018-06-06] VITALS: BP 139/70
[2018-06-06] MEDS: morphine 2 MG/ML inj. syringe IV PRN (00:04)
[2018-06-06] MEDS: ipratropium/albuterol 3ml nebule NEB SCH ×6 (03:13→22:58)
[2018-06-06 05:33] LABS: BASOPHILS % (AUTO) 0.2 % (0-1); EOSINOPHILS # (AUTO) 0.1 X10'3 (0-0.9); EOSINOPHILS % (AUTO) 0.9 % (0-6); HEMATOCRIT 27.3 % (35.0-45.0); HEMOGLOBIN 9.1 g/dl (12.0-16.0); LYMPHOCYTES # (AUTO) 0.5 X10'3 (1.1-4.8); MEAN CORPUSCULAR HGB CONC 33.2 g/dL (33.0-36.5); MEAN CORPUSCULAR VOLUME 96.4 FL (78-98); MEAN PLATELET VOLUME 8.5 FL (7.4-10.4); MONOCYTES # (AUTO) 1.3 X10'3 (0-0.9); MONOCYTES % (AUTO) 11.6 % (2-12); NEUTROPHILS # (AUTO) 9.5 X10'3 (1.8-7.7); NEUTROPHILS % (AUTO) 83.3 % (42-75); PLATELET COUNT 241 X10'3 (140-440); RED BLOOD COUNT 2.83 X10'6 (4.20-5.60); RED CELL DISTRIBUTION WIDTH 15.4 % (11.5-14.5); WHITE BLOOD COUNT 11.4 X10'3 (4.5-11.0)
[2018-06-06 05:36] LABS: INR 1.8 INR; PROTHROMBIN TIME 18.1 SECONDS (9.0-12.0)
[2018-06-06 05:37] LABS: ALBUMIN 2.5 G/DL (3.4-5.0); ANION GAP 13 (8-16); BLOOD UREA NITROGEN 39 MG/DL (7-18); BUN/CREATININE RATIO 25.3 (6.6-38.0); CALCIUM 8.7 MG/DL (8.5-10.1); CHLORIDE 101 MMOL/L (99-107); CREATININE 1.54 MG/DL (0.40-0.90); GLUCOSE 104 MG/DL (70-104); POTASSIUM 3.5 MMOL/L (3.5-5.1); SODIUM 139 MMOL/L (135-145); TOTAL CARBON DIOXIDE 25.3 MMOL/L (24-32); eGFR 32 ML/MIN
--- NOTE | 2018-06-06 06:00 | NUR ---
Patient in room [facility]. I have received report from Valery Rasmussen RN and had the opportunity to ask questions and assume patient care.
--- NOTE | 2018-06-06 06:15 | NUR ---
Problems reprioritized. Patient report given, questions answered & plan of care reviewed with CARMINE RN.
[2018-06-06 06:30] VITALS: BP 132/52
[2018-06-06] MEDS: BUDESONIDE 0.25 MG/2 ML AMPUL.NEB IH SCH ×2 (07:42→19:25)
[2018-06-06] MEDS: multivitamins, therapeutics tablet PO SCH (07:47)
[2018-06-06] MEDS: lactobacillus rhamnosus 10,000 MMU CELLS/CAPSULE PO SCH ×2 (07:47→20:20)
[2018-06-06] MEDS: magnesium oxide 400mg tablet PO SCH (07:47)
[2018-06-06] MEDS: aspirin 81mg tablet.DR PO SCH (07:47)
[2018-06-06] MEDS: vitamin D (cholecalciferol) 1,000 unit tablet PO SCH (07:48)
[2018-06-06] MEDS: minoxidil 2.5mg tablet PO SCH ×2 (07:48→20:20)
[2018-06-06] MEDS: levoFLOXACIN-Levaquin 250mg/D5 50 ML IV SCH (07:48)
[2018-06-06] MEDS: diltiazem CD 120mg capsule (once-daily) PO SCH (07:48)
[2018-06-06] MEDS: enoxaparin 80mg/0.8ml syringe SUBCUT SCH (07:48)
[2018-06-06] MEDS: oxyCODONE/APAP 10/325mg tablet PO PRN ×2 (10:23→17:15)
--- NOTE | 2018-06-06 11:08 | NUR ---
Spoke to Pharmacist Mahamed, regarding patients coumadin dosing is not correct in the emar. Shows patient is to receive 2 doses tonight. Per Mahamed he will work on it and speak to Cristobal the institute director. Mahamed did fix dosing for tonight but still need to fix future doses.
[2018-06-06 11:30] VITALS: BP 129/49
--- NOTE | 2018-06-06 15:39 | NUR ---
Initial: Pt s/p colostomy and chemo port takedown; hx anal CA s/p chemo. Pt PO 100% full liquid diet post-op. LBM 05/31; WILVER d/w RN for routine bowel care per MD approval post-op. Receiving MVI for wound healing. Will continue to monitor. Rec: 1. advance diet per MD to low-residue post-op 2. monitor for ONS needs 3. MVI for wounds 4. wt per rx Addendum: 06/06/18 at [address] Amended: Links added.
--- NOTE | 2018-06-06 18:35 | NUR ---
Problems reprioritized. Patient report given, questions answered & plan of care reviewed with JASSI Agosto.
[2018-06-06 20:00] VITALS: BP 136/45
[2018-06-06] MEDS ORDERED: warfarin 7.5mg tablet PO SCH ×2 (21:00)
--- NOTE | 2018-06-06 22:11 | NUR ---
Patient in room [facility]. I have received report from JASSI Bar and had the opportunity to ask questions and assume patient care. Addendum: 06/06/18 at 2212 by Triny Manzano RN Amended: Links added.
[2018-06-07] VITALS: BP 146/57
[2018-06-07] MEDS: oxyCODONE/APAP 10/325mg tablet PO PRN ×2 (02:57→13:43)
[2018-06-07] MEDS: ipratropium/albuterol 3ml nebule NEB SCH ×6 (03:05→23:55)
[2018-06-07 05:39] LABS: INR 2.8 INR; PROTHROMBIN TIME 27.2 SECONDS (9.0-12.0)
--- NOTE | 2018-06-07 06:10 | NUR ---
Patient in room [facility]. I have received report from JASSI Agosto and had the opportunity to ask questions and assume patient care.
[2018-06-07 06:30] VITALS: BP 138/56
--- NOTE | 2018-06-07 06:40 | NUR ---
Problems reprioritized. Patient report given, questions answered & plan of care reviewed with JASSI Bar. Addendum: 06/07/18 at 0640 by Triny Manzano RN Amended: Links added.
[2018-06-07] MEDS: BUDESONIDE 0.25 MG/2 ML AMPUL.NEB IH SCH ×2 (07:41→19:23)
[2018-06-07] MEDS: diltiazem CD 120mg capsule (once-daily) PO SCH (08:22)
[2018-06-07] MEDS: vitamin D (cholecalciferol) 1,000 unit tablet PO SCH (08:22)
[2018-06-07] MEDS: levoFLOXACIN-Levaquin 250mg/D5 50 ML IV SCH (08:22)
[2018-06-07] MEDS: magnesium oxide 400mg tablet PO SCH (08:23)
[2018-06-07] MEDS: minoxidil 2.5mg tablet PO SCH ×2 (08:23→20:17)
[2018-06-07] MEDS: multivitamins, therapeutics tablet PO SCH (08:23)
[2018-06-07] MEDS: aspirin 81mg tablet.DR PO SCH (08:23)
[2018-06-07] MEDS: lactobacillus rhamnosus 10,000 MMU CELLS/CAPSULE PO SCH ×2 (08:23→20:17)
[2018-06-07] MEDS: enoxaparin 80mg/0.8ml syringe SUBCUT SCH (08:24)
[2018-06-07 11:30] VITALS: BP 131/63
[2018-06-07] MEDS: metroNIDAZOLE-Flagyl 500mg/NS 100 ML IV SCH ×2 (15:20→23:24)
--- NOTE | 2018-06-07 18:05 | NUR ---
Problems reprioritized. Patient report given, questions answered & plan of care reviewed with JASSI Agosto.
--- NOTE | 2018-06-07 19:09 | NUR ---
Patient in room [facility]. I have received report from JASSI Bar and had the opportunity to ask questions and assume patient care. Addendum: 06/07/18 at 1916 by Triny Manzano RN Amended: Links added.
[2018-06-07 20:00] VITALS: BP 145/52
[2018-06-07 23:44] VITALS: BP 133/73
[2018-06-08] MEDS: ipratropium/albuterol 3ml nebule NEB SCH ×6 (03:21→23:29)
[2018-06-08 05:17] LABS: INR 2.6 INR; PROTHROMBIN TIME 25.1 SECONDS (9.0-12.0)
--- NOTE | 2018-06-08 06:06 | NUR ---
Problems reprioritized. Patient report given, questions answered & plan of care reviewed with JASSI Gatica. Addendum: 06/08/18 at 0607 by Triny Manzano RN Amended: Links added.
--- NOTE | 2018-06-08 06:10 | NUR ---
Patient in room [facility]. I have received report from JASSI Agosto and had the opportunity to ask questions and assume patient care.
[2018-06-08] MEDS: oxyCODONE/APAP 10/325mg tablet PO PRN ×2 (06:25→15:24)
[2018-06-08] MEDS: lactobacillus rhamnosus 10,000 MMU CELLS/CAPSULE PO SCH ×2 (07:12→20:17)
[2018-06-08] MEDS: magnesium oxide 400mg tablet PO SCH (07:13)
[2018-06-08] MEDS: diltiazem CD 120mg capsule (once-daily) PO SCH (07:13)
[2018-06-08] MEDS: BUDESONIDE 0.25 MG/2 ML AMPUL.NEB IH SCH ×2 (07:13→19:13)
[2018-06-08] MEDS: minoxidil 2.5mg tablet PO SCH ×2 (07:13→20:18)
[2018-06-08] MEDS: aspirin 81mg tablet.DR PO SCH (07:13)
[2018-06-08] MEDS: multivitamins, therapeutics tablet PO SCH (07:13)
[2018-06-08] MEDS: vitamin D (cholecalciferol) 1,000 unit tablet PO SCH (07:13)
[2018-06-08] MEDS: levoFLOXACIN-Levaquin 250mg/D5 50 ML IV SCH (07:13)
[2018-06-08 08:00] VITALS: BP 134/51
[2018-06-08] MEDS: metroNIDAZOLE-Flagyl 500mg/NS 100 ML IV SCH ×2 (08:39→15:25)
[2018-06-08] MEDS ORDERED: magnesium hydroxide 30ml (MOM) UD suspension PO ONE (11:15)
[2018-06-08 12:00] VITALS: BP 141/54
--- NOTE | 2018-06-08 18:35 | NUR ---
Problems reprioritized. Patient report given, questions answered & plan of care reviewed with JASSI Okeefe.
--- NOTE | 2018-06-08 18:42 | NUR ---
Patient in room [facility]. I have received report from JASSI Gatica and had the opportunity to ask questions and assume patient care.
[2018-06-08 20:00] VITALS: BP 138/58
[2018-06-08] MEDS ORDERED: warfarin 10mg tablet PO SCH (21:00)
[2018-06-08] MEDS ORDERED: warfarin 5mg tablet PO SCH (21:00)
--- NOTE | 2018-06-08 23:48 | NUR ---
Patient is refusing to ambulate and get out of bed. Pt has been encouraged and made aware of the risks of not ambulating.
[2018-06-09] VITALS: BP 132/46
[2018-06-09] MEDS: metroNIDAZOLE-Flagyl 500mg/NS 100 ML IV SCH ×3 (00:20→16:52)
[2018-06-09] MEDS: oxyCODONE/APAP 10/325mg tablet PO PRN ×3 (00:25→23:05)
[2018-06-09] MEDS: ipratropium/albuterol 3ml nebule NEB SCH ×3 (03:00→12:21)
[2018-06-09 04:16] LABS: BASOPHILS # (AUTO) 0.1 X10'3 (0-0.2); BASOPHILS % (AUTO) 0.7 % (0-1); EOSINOPHILS # (AUTO) 0.2 X10'3 (0-0.9); EOSINOPHILS % (AUTO) 1.6 % (0-6); HEMATOCRIT 24.3 % (35.0-45.0); HEMOGLOBIN 8.2 g/dl (12.0-16.0); LYMPHOCYTES # (AUTO) 0.7 X10'3 (1.1-4.8); LYMPHOCYTES % (AUTO) 5.9 % (21-51); MEAN CORPUSCULAR HEMOGLOBIN 31.5 PG (27.0-31.0); MEAN CORPUSCULAR HGB CONC 33.7 g/dL (33.0-36.5); MEAN CORPUSCULAR VOLUME 93.6 FL (78-98); MEAN PLATELET VOLUME 8.2 FL (7.4-10.4); MONOCYTES # (AUTO) 1.2 X10'3 (0-0.9); MONOCYTES % (AUTO) 10.7 % (2-12); NEUTROPHILS # (AUTO) 9.1 X10'3 (1.8-7.7); NEUTROPHILS % (AUTO) 81.1 % (42-75); PLATELET COUNT 288 X10'3 (140-440); RED CELL DISTRIBUTION WIDTH 15.4 % (11.5-14.5); WHITE BLOOD COUNT 11.2 X10'3 (4.5-11.0)
[2018-06-09 04:21] LABS: ALBUMIN 2.3 G/DL (3.4-5.0); ANION GAP 8 (8-16); BLOOD UREA NITROGEN 27 MG/DL (7-18); BUN/CREATININE RATIO 19.7 (6.6-38.0); CALCIUM 9.3 MG/DL (8.5-10.1); CHLORIDE 100 MMOL/L (99-107); CREATININE 1.37 MG/DL (0.40-0.90); GLUCOSE 130 MG/DL (70-104); POTASSIUM 3.8 MMOL/L (3.5-5.1); SODIUM 138 MMOL/L (135-145); TOTAL CARBON DIOXIDE 30.4 MMOL/L (24-32); eGFR 37 ML/MIN
[2018-06-09 04:22] LABS: INR 2.2 INR; PROTHROMBIN TIME 21.6 SECONDS (9.0-12.0)
[2018-06-09 06:24] LABS: PLATELET ESTIMATE NORMAL; TOTAL CELLS COUNTED 100
--- NOTE | 2018-06-09 06:28 | NUR ---
Problems reprioritized. Patient report given, questions answered & plan of care reviewed with JASSI Sampson.
[2018-06-09] MEDS: BUDESONIDE 0.25 MG/2 ML AMPUL.NEB IH SCH ×2 (08:00→19:33)
[2018-06-09] MEDS: levoFLOXACIN-Levaquin 250mg/D5 50 ML IV SCH (08:18)
[2018-06-09] MEDS: aspirin 81mg tablet.DR PO SCH (08:19)
[2018-06-09] MEDS: vitamin D (cholecalciferol) 1,000 unit tablet PO SCH (08:19)
[2018-06-09] MEDS: minoxidil 2.5mg tablet PO SCH ×2 (08:19→22:44)
[2018-06-09] MEDS: diltiazem CD 120mg capsule (once-daily) PO SCH (08:20)
[2018-06-09] MEDS: lactobacillus rhamnosus 10,000 MMU CELLS/CAPSULE PO SCH ×2 (08:20→22:44)
[2018-06-09] MEDS: magnesium oxide 400mg tablet PO SCH (08:20)
[2018-06-09] MEDS: multivitamins, therapeutics tablet PO SCH (08:21)
[2018-06-09] MEDS: polyethylene glycol 3350 17gm powd pack PO SCH ×2 (14:30→21:00)
--- NOTE | 2018-06-09 15:06 | NUR ---
Reassessment: Pt continues on full liquid diet with documented 100% intake. Pt still without a BM since 05/31 however passing flatus with active bowel sounds per MD notes, routine Colace and Miralax have just been ordered to med list. Will continue to follow closely and monitor need for additional bowel care. Rec: 1. advance diet per MD to low-residue post-op 2. monitor for ONS needs 3. MVI for wounds 4. Monitor need for additional bowel care 5. wt per rx Addendum: 06/09/18 at [address] Amended: Links added.
[2018-06-09] MEDS: docusate sod 100mg capsule PO SCH ×2 (16:52→20:00)
[2018-06-09 19:30] VITALS: BP 123/59
[2018-06-09] MEDS ORDERED: polyethylene glycol 3350 17gm powd pack PO SCH (21:00)
[2018-06-09] MEDS ORDERED: warfarin 5mg tablet PO ONE (21:00)
[2018-06-10] VITALS: BP_SYST 128; BP_SYST 130; BP_DIAS 46; BP_DIAS 47
[2018-06-10] MEDS: LORazepam 0.5 MG tablet PO PRN ×3 (02:52→22:28)
[2018-06-10 05:43] LABS: BASOPHILS % (AUTO) 0.3 % (0-1); EOSINOPHILS # (AUTO) 0.2 X10'3 (0-0.9); EOSINOPHILS % (AUTO) 1.2 % (0-6); HEMATOCRIT 24.8 % (35.0-45.0); HEMOGLOBIN 8.4 g/dl (12.0-16.0); LYMPHOCYTES # (AUTO) 0.5 X10'3 (1.1-4.8); LYMPHOCYTES % (AUTO) 3.5 % (21-51); MEAN CORPUSCULAR HGB CONC 33.7 g/dL (33.0-36.5); MEAN CORPUSCULAR VOLUME 94.9 FL (78-98); MEAN PLATELET VOLUME 8.6 FL (7.4-10.4); MONOCYTES # (AUTO) 1.2 X10'3 (0-0.9); MONOCYTES % (AUTO) 8.9 % (2-12); NEUTROPHILS % (AUTO) 86.1 % (42-75); PLATELET COUNT 314 X10'3 (140-440); RED BLOOD COUNT 2.61 X10'6 (4.20-5.60); RED CELL DISTRIBUTION WIDTH 15.2 % (11.5-14.5)
[2018-06-10 05:50] LABS: ALBUMIN 2.3 G/DL (3.4-5.0); ANION GAP 9 (8-16); BLOOD UREA NITROGEN 31 MG/DL (7-18); BUN/CREATININE RATIO 22.3 (6.6-38.0); CALCIUM 8.7 MG/DL (8.5-10.1); CHLORIDE 100 MMOL/L (99-107); CREATININE 1.39 MG/DL (0.40-0.90); GLUCOSE 110 MG/DL (70-104); INR 2.1 INR; POTASSIUM 3.7 MMOL/L (3.5-5.1); PROTHROMBIN TIME 20.6 SECONDS (9.0-12.0); SODIUM 138 MMOL/L (135-145); TOTAL CARBON DIOXIDE 28.8 MMOL/L (24-32); eGFR 36 ML/MIN
[2018-06-10 07:28] VITALS: BP 146/77
[2018-06-10] MEDS: metroNIDAZOLE-Flagyl 500mg/NS 100 ML IV SCH ×3 (08:17→15:47)
[2018-06-10] MEDS: aspirin 81mg tablet.DR PO SCH (08:18)
[2018-06-10] MEDS: diltiazem CD 120mg capsule (once-daily) PO SCH (08:18)
[2018-06-10] MEDS: magnesium oxide 400mg tablet PO SCH (08:18)
[2018-06-10] MEDS: lactobacillus rhamnosus 10,000 MMU CELLS/CAPSULE PO SCH ×2 (08:18→20:36)
[2018-06-10] MEDS: multivitamins, therapeutics tablet PO SCH (08:18)
[2018-06-10] MEDS: vitamin D (cholecalciferol) 1,000 unit tablet PO SCH (08:18)
[2018-06-10] MEDS: minoxidil 2.5mg tablet PO SCH ×2 (08:18→20:35)
[2018-06-10] MEDS: docusate sod 100mg capsule PO SCH ×2 (08:18→20:42)
[2018-06-10] MEDS: ipratropium/albuterol 3ml nebule NEB PRN ×2 (09:39→20:56)
[2018-06-10] MEDS: BUDESONIDE 0.25 MG/2 ML AMPUL.NEB IH SCH ×2 (09:39→20:56)
[2018-06-10 11:45] VITALS: BP 132/46
--- NOTE | 2018-06-10 13:00 | NUR ---
Abdominal dressing changed. Iodoform gauze packing x2 inserted, 4x4 gauze on top and foam tape securing dressing.
--- NOTE | 2018-06-10 13:11 | NUR ---
MD aware of last BM date, no new orders.
--- NOTE | 2018-06-10 18:40 | NUR ---
Problems reprioritized. Patient report given, questions answered & plan of care reviewed with JASSI Tirado.
--- NOTE | 2018-06-10 18:45 | NUR ---
Patient in room [facility]. I have received report from PORFIRIO KEENE and had the opportunity to ask questions and assume patient care.
[2018-06-10 20:00] VITALS: BP 140/67
[2018-06-10] MEDS: diatr meglu/diatrizoate 30ml oral sol.-(3 dose) bottle PO SCH (20:37)
[2018-06-10] MEDS: polyethylene glycol 3350 17gm powd pack PO SCH (20:44)
[2018-06-10] MEDS ORDERED: warfarin 5mg tablet PO ONE (21:00)
[2018-06-10] MEDS ORDERED: warfarin 5mg tablet PO SCH (21:00)
[2018-06-11] MEDS: metroNIDAZOLE-Flagyl 500mg/NS 100 ML IV SCH ×2 (00:14→07:32)
[2018-06-11] MEDS: oxyCODONE/APAP 10/325mg tablet PO PRN ×2 (00:15→07:39)
[2018-06-11 04:44] LABS: BASOPHILS % (AUTO) 0.3 % (0-1); EOSINOPHILS # (AUTO) 0.1 X10'3 (0-0.9); EOSINOPHILS % (AUTO) 1.1 % (0-6); HEMATOCRIT 27.5 % (35.0-45.0); LYMPHOCYTES # (AUTO) 0.6 X10'3 (1.1-4.8); LYMPHOCYTES % (AUTO) 4.8 % (21-51); MEAN CORPUSCULAR HEMOGLOBIN 31.1 PG (27.0-31.0); MEAN CORPUSCULAR HGB CONC 32.7 g/dL (33.0-36.5); MEAN CORPUSCULAR VOLUME 94.9 FL (78-98); MEAN PLATELET VOLUME 8.2 FL (7.4-10.4); MONOCYTES % (AUTO) 7.7 % (2-12); NEUTROPHILS # (AUTO) 11.3 X10'3 (1.8-7.7); NEUTROPHILS % (AUTO) 86.1 % (42-75); PLATELET COUNT 367 X10'3 (140-440); RED BLOOD COUNT 2.89 X10'6 (4.20-5.60); RED CELL DISTRIBUTION WIDTH 15.5 % (11.5-14.5); WHITE BLOOD COUNT 13.1 X10'3 (4.5-11.0)
[2018-06-11 05:00] LABS: ALBUMIN 2.5 G/DL (3.4-5.0); ANION GAP 6 (8-16); BLOOD UREA NITROGEN 32 MG/DL (7-18); BUN/CREATININE RATIO 22.9 (6.6-38.0); CALCIUM 8.6 MG/DL (8.5-10.1); CHLORIDE 103 MMOL/L (99-107); GLUCOSE 151 MG/DL (70-104); POTASSIUM 3.6 MMOL/L (3.5-5.1); SODIUM 138 MMOL/L (135-145); TOTAL CARBON DIOXIDE 29.4 MMOL/L (24-32); eGFR 36 ML/MIN
[2018-06-11 05:07] LABS: INR 2.6 INR
--- NOTE | 2018-06-11 06:30 | NUR ---
Problems reprioritized. Patient report given, questions answered & plan of care reviewed with GOMEZ KEENE.
--- NOTE | 2018-06-11 06:30 | NUR ---
Patient in room [facility]. I have received report from Valery Rasmussen RN and had the opportunity to ask questions and assume patient care. Patient resting comfortably at this time. Call light and items of frequent use in reach of patient.
[2018-06-11] MEDS: diatr meglu/diatrizoate 30ml oral sol.-(3 dose) bottle PO SCH (07:29)
[2018-06-11 07:30] VITALS: BP 133/47
[2018-06-11] MEDS: diltiazem CD 120mg capsule (once-daily) PO SCH (07:33)
[2018-06-11] MEDS: minoxidil 2.5mg tablet PO SCH (07:34)
[2018-06-11] MEDS: magnesium oxide 400mg tablet PO SCH (07:34)
[2018-06-11] MEDS: aspirin 81mg tablet.DR PO SCH (07:34)
[2018-06-11] MEDS: lactobacillus rhamnosus 10,000 MMU CELLS/CAPSULE PO SCH (07:34)
[2018-06-11] MEDS: docusate sod 100mg capsule PO SCH (07:34)
[2018-06-11] MEDS: multivitamins, therapeutics tablet PO SCH (07:35)
[2018-06-11] MEDS: vitamin D (cholecalciferol) 1,000 unit tablet PO SCH (07:35)
[2018-06-11] MEDS: ipratropium/albuterol 3ml nebule NEB PRN (09:45)
[2018-06-11] MEDS: BUDESONIDE 0.25 MG/2 ML AMPUL.NEB IH SCH (09:45)
[2018-06-11 11:48] VITALS: BP 146/53
--- NOTE | 2018-06-11 12:59 | NUR ---
Patient discharged to [facility] via [facility]. Patient alert and oriented at time of discharge. Patient in no apparent distress on 3L NC. Patient PIV removed with cannula intact. Patient home medication was retrieved from Pharmacy and sent with patient along with the rest of her belongings. Report called to receiving facility and given to
== END 2018-06-11 13:01 | DRG 344 ==
LOC: PAS IN 05:59 → EDSTATUS 08:00 → SUR 3N 11:55
PROVIDERS: ADMIT Surgery; ATTEND Surgery
PROC: 0JPT0WZ Removal of Totally Implantable Vascular Access Device from Trunk Subcutaneous Tissue and Fascia, Open Approach (ICD-10-PCS; 2018-06-01)
PROC: 02PY33Z Removal of Infusion Device from Great Vessel, Percutaneous Approach (ICD-10-PCS; 2018-06-01)
PROC: 0DSL0ZZ Reposition Transverse Colon, Open Approach (ICD-10-PCS; principal; 2018-06-01 08:26)
PROC: CB121ZZ Planar Nuclear Medicine Imaging of Lungs and Bronchi using Technetium 99m (Tc-99m) (ICD-10-PCS; 2018-06-04)
DX: Z43.3 Encounter for attention to colostomy (principal); J96.20 Acute and chronic respiratory failure, unspecified whether with hypoxia or hypercapnia; K56.7 Ileus, unspecified; N17.9 Acute kidney failure, unspecified; J98.11 Atelectasis; N18.3 Chronic kidney disease, stage 3 (moderate); J44.9 Chronic obstructive pulmonary disease, unspecified; M79.7 Fibromyalgia; R33.9 Retention of urine, unspecified; Z86.711 Personal history of pulmonary embolism; Z90.710 Acquired absence of both cervix and uterus; Z79.01 Long term (current) use of anticoagulants; Z79.82 Long term (current) use of aspirin; Z79.899 Other long term (current) drug therapy; Z85.528 Personal history of other malignant neoplasm of kidney; Z90.49 Acquired absence of other specified parts of digestive tract; Z92.21 Personal history of antineoplastic chemotherapy
CPT/HCPCS: 36415; 36600; 71045; 74022; 78582; 80048; 80053; 81003; 82803; 82948; 85018; 85025; 85610; 85730; 86885; 86900; 86901; 87040; 87070; 87077; 87185; 93005; 94640; 94667; 94668; 94760; 97110; 97116; 97162; 97530; A6224; A6253; A6266; A6449; A7000; A9539; A9540; C9399; G0378; J0690; J1100; J1650; J1940; J1956; J2001; J2270; J2405; J2704; J2710; J3010; J3490; J7030; J7060; J7120; Q9963

== ENCOUNTER 2019-03-15 12:00 | Day surgery (SDC) | payer MEDICARE, BC, OTHER ==
[2019-03-10 12:57] LABS: BASOPHILS # (AUTO) 0.1 X10'3 (0-0.2); BASOPHILS % (AUTO) 0.6 % (0-1); EOSINOPHILS # (AUTO) 0.2 X10'3 (0-0.9); EOSINOPHILS % (AUTO) 2.1 % (0-6); LYMPHOCYTES # (AUTO) 1.7 X10'3 (1.1-4.8); LYMPHOCYTES % (AUTO) 17.3 % (21-51); MEAN CORPUSCULAR HEMOGLOBIN 30.2 PG (27.0-31.0); MEAN CORPUSCULAR HGB CONC 33.2 g/dL (33.0-36.5); MEAN CORPUSCULAR VOLUME 90.8 FL (78-98); MEAN PLATELET VOLUME 7.6 FL (7.4-10.4); MONOCYTES # (AUTO) 0.9 X10'3 (0-0.9); MONOCYTES % (AUTO) 9.1 % (2-12); NEUTROPHILS % (AUTO) 70.9 % (42-75); PRE OP HEMATOCRIT 33.1 % (35.0-45.0); PRE OP PLATELET COUNT 326 X10'3 (140-440); RED BLOOD COUNT 3.64 X10'6 (4.20-5.60); RED CELL DISTRIBUTION WIDTH 16.5 % (11.5-14.5)
[2019-03-10 13:13] LABS: ALBUMIN 3.7 G/DL (3.4-5.0); ALBUMIN/GLOBULIN RATIO 0.9 (1.1-1.5); ALKALINE PHOSPHATASE 93 IU/L (46-116); BLOOD UREA NITROGEN 16 MG/DL (7-18); BUN/CREATININE RATIO 11.6 (6.6-38.0); CALCIUM 8.6 MG/DL (8.5-10.1); CHLORIDE 103 MMOL/L (99-107); CREATININE 1.38 MG/DL (0.40-0.90); PRE OP ALT 23 U/L (30-65); PRE OP ANION GAP 7 (8-16); PRE OP AST 21 U/L (10-37); PRE OP BILIRUB, TOTAL 0.4 MG/DL (0.0-1.0); PRE OP GLUCOSE 101 MG/DL (70-104); PRE OP POTASSIUM 3.7 MMOL/L (3.4-5.1); PRE OP SODIUM 139 MMOL/L (135-145); TOTAL CARBON DIOXIDE 28.9 MMOL/L (24-32); TOTAL PROTEIN 7.9 G/DL (6.4-8.2); eGFR 37 ML/MIN
[~2019-03-15] VITALS: Ht 160 cm; Wt 87.1 kg
[2019-03-15] VITALS (8 sets, daily range): BP systolic 131–157; BP diastolic 56–68
[~2019-03-15 12:00] MED LIST changes: -ACET-2119 PO; +COU7.5T PO; +CYCL-1 PO; -IRON18TA PO; -LOPE-155 PO; +OXYC-511 PO; +POTA25TA35 PO; -TAPE75TA2 PO; -ceFAZolin 2gm in dextrose, iso 100 ML IV ONE; +cefazolin/dext.iso 2gm/100ml 100 ML IV ONE; +famotidine 10mg tablet PO ONE; -famotidine 20mg tablet PO ONE; +meperidine/PF 25mg/ml syringe IV PRN; +morphine 4 MG/ML inj SYRINge IV PRN; +ondansetron/PF 4mg/2ml inj IV PRN; +proCHLORperazine 10 MG/2 ml inj IV PRN
[2019-03-15] MEDS ORDERED: LOVENOX (13:14)
[2019-03-15] MEDS ORDERED: FISH12002 PO (13:14)
[2019-03-15] MEDS ORDERED: albuterol 2.5 MG/3 ML nebule NEB ONE (13:19)
[2019-03-15] MEDS ORDERED: BUPIVACAINE liposomal/PF 13.3 MG/ML vial IM ONE (14:08)
[2019-03-15] MEDS ORDERED: BUPIVAcaine/PF 2.5 mg/ml (0.25%) 30ml vial ONE (14:08)
[2019-03-15] MEDS ORDERED: fentaNYL/PF 50MCG/1 ML 2ML syringe ONE (14:15)
[2019-03-15] MEDS ORDERED: midazolam 2 mg/2 ml injection ONE (14:16)
[2019-03-15] MEDS ORDERED: ondansetron/PF 4mg/2ml inj ONE (14:17)
[2019-03-15] MEDS ORDERED: desflurane 240ml liquid inh. IH ONE (14:17)
[2019-03-15] MEDS ORDERED: dexamethasone sod phosphate 10mg/ml inj ONE (14:17)
[2019-03-15] MEDS ORDERED: acetaminophen 1,000mg/100ml IV 100 ML IV ONE (14:37)
[2019-03-15] MEDS ORDERED: ROPIVAcaine 0.5% (5mg/ml) 30ml vial ONE (15:08)
[2019-03-15] MEDS ORDERED: BUPIVAcaine 0.5% inj/PF 30 ML ONE (15:09)
[2019-03-15] MEDS ORDERED: LIDOcaine 2% (20mg/ml) 5ml vial ONE (15:11)
[2019-03-15] MEDS ORDERED: propofol inj 20 ML IV ONE (15:11)
--- NOTE | 2019-03-15 15:28 | NUR ---
Received from OR via , accompanied by Anesthesiologist DR BEAVERS and report given by Anesthesiolgist. AWAKE AND CARMINE PAIN. VITALS STABLE. DRESSING DI. ABD SOFT.
--- NOTE | 2019-03-15 16:48 | NUR ---
AWAKE AND ORIENTED. VITALS STABLE. DRESSING DI. CARMINE PAIN. HOME WITH A FRIEND AT THIS TIME.
== END 2019-03-15 16:48 | disposition home or self-care (01) ==
LOC: PAS 12:00
PROVIDERS: ATTEND Surgery
DX: K42.9 Umbilical hernia without obstruction or gangrene (principal); R19.00 Intra-abdominal and pelvic swelling, mass and lump, unspecified site; J44.9 Chronic obstructive pulmonary disease, unspecified; I10 Essential (primary) hypertension; K21.9 Gastro-esophageal reflux disease without esophagitis; F17.210 Nicotine dependence, cigarettes, uncomplicated; E66.9 Obesity, unspecified; Z68.34 Body mass index [BMI] 34.0-34.9, adult; Z85.048 Personal history of other malignant neoplasm of rectum, rectosigmoid junction, and anus; Z85.41 Personal history of malignant neoplasm of cervix uteri; Z86.711 Personal history of pulmonary embolism; Z79.899 Other long term (current) drug therapy; Z79.01 Long term (current) use of anticoagulants; Z91.018 Allergy to other foods; Z91.09 Other allergy status, other than to drugs and biological substances; Z88.5 Allergy status to narcotic agent; Z88.8 Allergy status to other drugs, medicaments and biological substances; Z88.1 Allergy status to other antibiotic agents; Z91.030 Bee allergy status; Z90.710 Acquired absence of both cervix and uterus; Z90.49 Acquired absence of other specified parts of digestive tract; Z86.19 Personal history of other infectious and parasitic diseases
CPT/HCPCS: 22902; 36415; 49585; 71046; 80053; 82948; 85025; 85610; 85730; 93005; 94060; 94640; C1781; C9290; J0131; J1100; J2001; J2250; J2405; J2704; J3010; J3490; 88302; 88304; A4618; A6449; A7000; J2795; J7120